=== PATIENT | female | born 1965 | race Native Hawaiian/Other Pacific Islander ===

== ENCOUNTER → 2016-12-08 | Outpatient (CLI) | payer BC ==
--- NOTE | 2016-12-09 07:15 | US ---
EXAMINATION TYPE: US pelvic complete DATE OF EXAM: 12/08/2016 4:34 PM COMPARISON: NONE CLINICAL HISTORY: R10.2 Pelvic pain. Heavy cycles, 3 c-sections TECHNIQUE: Transvaginal (TV) and Transabdominal (TA) Date of LMP: 11/30/2016 EXAM MEASUREMENTS: Uterus: 10.6 x 4.9 x 5.2 cm Endometrial Stripe: 0.8 cm Right Ovary: 2.2 x 2.6 x 1.7 cm Left Ovary: 2.8 x 2.7 x 1.6 cm 1. Uterus: Anteverted wnl 2. Endometrium: wnl 3. Right Ovary: wnl 4. Left Ovary: 1.1cm simple cyst seen 5. Bilateral Adnexa: wnl 6. Posterior cul-de-sac: wnl Multiple nabothian cysts are seen in the cervix. Endometrium somewhat poorly defined measuring up to 9 mm which is slightly thickened for proliferative phase of menstrual cycle. Both ovaries are somewha t small in size. IMPRESSION: Slight abnormal thickening of endometrial for proliferative phase of menstrual cycle.
== END | disposition home or self-care (01) ==
LOC: RADUSWWP 15:58
PROVIDERS: ATTEND Family Medicine
DX: R93.8 Abnormal findings on diagnostic imaging of other specified body structures (principal); R10.2 Pelvic and perineal pain
CPT/HCPCS: 76830; 76856

== ENCOUNTER → 2017-01-27 | Outpatient (CLI) | payer BC ==
[2017-01-27 11:17] LABS: Basophils % (A) 1 %; CH 23.6; Eosinophils # (A) 0.1 k/uL (0-0.7); Eosinophils % (A) 2 %; HCT 37.4 % (34.0-46.0); HDW 2.81; HGB 11.5 gm/dL (11.4-16.0); Hypochromasia Marked; Luc # (Auto) 0.17; Luc % (Auto) 3; Lymphocytes # (A) 1.5 k/uL (1.0-4.8); Lymphocytes % (A) 31 %; MCH 24.2 pg (25.0-35.0); MCHC 30.7 g/dL (31.0-37.0); MCV 78.8 fL (80.0-100.0); Mean Platelet Volume 7.6; Monocytes # (A) 0.4 k/uL (0-1.0); Monocytes % (A) 9 %; Neutrophils # (A) 2.7 k/uL (1.3-7.7); Neutrophils % (A) 55 %; RBC 4.75 m/uL (3.80-5.40); RDW 15.9 % (11.5-15.5); WBC 4.9 k/uL (3.8-10.6); WBC (Perox) 5.06
== END | disposition home or self-care (01) ==
LOC: LABPAT 10:38
PROVIDERS: ATTEND Obstetrics & Gynecology
DX: Z01.810 Encounter for preprocedural cardiovascular examination (principal); I10 Essential (primary) hypertension; M48.02 Spinal stenosis, cervical region; N93.8 Other specified abnormal uterine and vaginal bleeding; Z01.812 Encounter for preprocedural laboratory examination
CPT/HCPCS: 85025; 93005

== ENCOUNTER 2017-01-30 09:49 | Day surgery (SDC) | payer BC ==
[2017-01-27 09:02] VITALS: BMI 36.9
[~2017-01-30 09:49] MED LIST: DEXAMETHASONE SOD PHOSPHATE 10 MG/ML 1 ML VIAL IV ONE; HYDROmorphone 1 MG/ML 1 ML SYRINGE IVP PRN; LACTATED RINGERS 1,000 ML IV SCH; ONDANSETRON 4 MG/2 ML VIAL IVP ONE; Pre Op ABX Message 1 EACH MISC MISCELLANE ONE
[2017-01-30 10:22] VITALS: RESP 16
[2017-01-30] MEDS ORDERED: LIDOCAINE 1% 20 ML VIAL (10MG/ML) FOR IV START SQ ONE (10:36)
[2017-01-30] MEDS ORDERED: SUCCINYLCHOLINE CHLORIDE 100 MG/5 ML SYR IV ONE (10:47)
[2017-01-30] MEDS ORDERED: LIDOCAINE 1% INJ 10MG/ML (20 ML MDV) ONE (10:47)
[2017-01-30] MEDS ORDERED: fentaNYL (PF) 50 MCG/ML 2 ML AMP ONE (10:47)
[2017-01-30] MEDS ORDERED: KETOROLAC 30 MG/ML 1 ML VIAL ONE (10:47)
[2017-01-30] MEDS ORDERED: MIDAZOLAM 2 MG/2 ML VIAL ONE (10:47)
[2017-01-30] MEDS ORDERED: PROPOFOL 10 MG/ML 20 ML VIAL IV ONE (10:47)
[2017-01-30] MEDS ORDERED: METOCLOPRAMIDE 5 MG/ML 2 ML VIAL IVP PRN (12:23)
[2017-01-30] MEDS ORDERED: KETOROLAC 30 MG/ML 1 ML VIAL IVP PRN (12:23)
[2017-01-30] MEDS ORDERED: ONDANSETRON 4 MG/2 ML VIAL IVP PRN (12:23)
[2017-01-30] MEDS ORDERED: Acetaminophen-Codeine 300-30mg TAB PO PRN ×2 (12:23)
[2017-01-30] MEDS ORDERED: diphenhydrAMINE 50 MG/ML 1 ML VIAL IVP PRN (12:23)
[2017-01-30] MEDS ORDERED: IBUPROFEN 600 MG TAB PO PRN (12:23)
[2017-01-30] MEDS ORDERED: SIMETHICONE 80 MG CHEWABLE PO PRN (12:23)
[2017-01-30] MEDS ORDERED: LACTATED RINGERS 1,000 ML IV SCH (12:30)
--- NOTE | 2017-01-30 12:33 | P.OP ---
Date of Procedure: 01/30/17 Preoperative Diagnosis: #1. Dysfunctional uterine bleeding #2. Cervical stenosis Postoperative Diagnosis: Same Procedure(s) Performed: #1. Diagnostic hysteroscopy #2. Dilation and curettage #3. NovaSure endometrial ablation Implants: Surgeon: Mike Coleman Estimated Blood Loss (ml): 10 IV fluids (ml): 500 Urine output (ml): 100 Pathology: other (Endometrial curettings) Condition: stable Disposition: PACU Indications for Procedure: Operative Findings: Preoperative pelvic examination demonstrated a 7-8 week sized midplane to slightly anteverted mobile normal shaped uterus with normal adnexa bilaterally. Intraoperatively, the uterus sounded to 11 cm. Cervical stenosis was encountered but was able to be broken down using the uterine sound. The hysteroscopic view of the endometrial cavity demonstrated a significant amount of shaggy tissue throughout which was returned at the time of dilation and curettage. The tubal ostia were seen bilaterally. The degree of tissue returned is suggestive of possible hyperplasia pending final pathology. The typical gritty texture was felt with the sharp curet throughout. The settings for the NovaSure tool were a length of 6.5 cm, a width of 4.8 cm, and a total power 172 W. Following a run time of 69 seconds, the base unit read "procedure complete." The postprocedural result appeared to be excellent. The patient is a poor candidate for vaginal hysterectomy. Description of Procedure: The patient was prepped and draped in usual fashion after general endotracheal anesthesia was administered by the anesthesiologist. A weighted speculum was placed and the anterior lip of the cervix grasped with a single-tooth tenaculum. The uterine sound was then used and initially found significant resistance at the opening of the cervix. This was broken down with gentle pressure at which time uterine cavity was entered without difficulty. Uterus sounded to approximately 11 cm with a cervical length of approximately 3-4 cm. Serial dilation was then carried out to admit the diagnostic hysteroscope which was placed into the endometrial cavity. The findings were as noted above with a significant amount of shaggy tissue throughout, particularly in the lower uterine segment on the posterior wall. The bilateral tubal ostia were seen. Once adequate hysteroscopy had been carried out, the scope was set aside and further dilation carried out to admit a small sharp curette. Thorough circumferential curettage was carried out onto a Telfa in the vagina. A moderate to significant amount of tissue was returned. Once adequate curettage had been performed, the sharp curet was set aside and the NovaSure tool placed within the endometrial cavity and seated well. The settings for the tool were as noted above. It was opened to its maximal length at 6.5+ centimeters. The with was 4.8 cm. The total power was 172 W. The cavity check was attempted and passed without difficulty. The tool was enabled and the run was started. After a run time of 69 seconds, the base unit disengaged and read "procedure complete." The 2 was closed and discarded. The diagnostic scope was replaced with what appeared to be an excellent result. The patient has minimal uterine and cervical descensus and is a poor candidate for a vaginal approach should hysterectomy be necessary. The tenaculum was released and there was minimal ongoing bleeding from the tenaculum sites. The bladder was drained at the end of the case was approximately 100 mL of clear rafa urine. There were no complications. All sponge, instrument, and needle counts were correct. The patient tolerated the procedure well and proceeded to the recovery room in stable condition.
[2017-01-30 12:35] VITALS: TEMP 97
[2017-01-30] MEDS ORDERED: LACTATED RINGERS 1,000 ML IV ONE (13:22)
[2017-01-30] MEDS ORDERED: diphenhydrAMINE 50 MG/ML 1 ML VIAL IVP ONE (14:18)
[2017-01-30 14:26] VITALS: BP 141/91; PULSE 50
== END 2017-01-30 15:35 | disposition home or self-care (01) ==
LOC: OR 09:49
PROVIDERS: ATTEND Obstetrics & Gynecology
DX: N81.4 Uterovaginal prolapse, unspecified (principal); N88.2 Stricture and stenosis of cervix uteri; N93.8 Other specified abnormal uterine and vaginal bleeding; I10 Essential (primary) hypertension; E07.9 Disorder of thyroid, unspecified; K21.9 Gastro-esophageal reflux disease without esophagitis; Z88.2 Allergy status to sulfonamides; Z91.040 Latex allergy status; Z91.048 Other nonmedicinal substance allergy status; Z79.1 Long term (current) use of non-steroidal anti-inflammatories (NSAID); Z79.899 Other long term (current) drug therapy; Z90.49 Acquired absence of other specified parts of digestive tract
CPT/HCPCS: 58563; 81025; 88305; J2250; J1200; J1100; J2405; J2001; J3010; J1885; J0330; J2704

== ENCOUNTER 2017-08-17 06:21 | Emergency (ER) | payer BC ==
[2017-08-17] MEDS ORDERED: MORPHINE SULFATE 5 MG/ML SYRINGE IV STA (06:40)
[2017-08-17] MEDS ORDERED: SODIUM CHLORIDE 0.9% 1,000 ML IV STA ×2 (06:40)
[2017-08-17] MEDS ORDERED: RX INFO: IV CONTRAST WAS GIVEN 1 EACH MISC MISCELLANE PRN (06:40)
--- NOTE | 2017-08-17 06:41 | ED ---
General Adult HPI - General Source: patient, RN notes reviewed, old records reviewed Mode of arrival: ambulatory Limitations: no limitations <Ricky Patel - Last Filed: 08/17/17 06:52> <Ronald Baker - Last Filed: 08/17/17 10:18> - General Chief complaint: Back Pain/Injury Stated complaint: back pain Time Seen by Provider: 08/17/17 06:36 - History of Present Illness Initial comments: This is a 52-year-old female ER for evaluation of back pain. Back pain paralumbar spinal radiating around her anterior pelvis. Patient denies history of similar pain. She did see her doctor later this week for similar pain and was told to go to the ER if symptoms worsened. She did have some vaginal bleeding and she is postmenopausal, patient also admits to history ofspinal disease cervical stenosis, patient states she's had some discolored stools, yellowish, diarrhea, history of colonoscopy showing diverticulosis but no other significant disease, no blood in her stool. She did have some pain with urination although no burning. Patient denies any fevers. She has had appendix removed. And 3 C-sections (Ricky Patel) - Related Data Home Medications Medication Instructions Recorded Confirmed Levothyroxine Sodium [Synthroid] 137 mcg PO DAILY 01/27/17 08/17/17 Meloxicam [Mobic] 15 mg PO DAILY 01/27/17 08/17/17 Ranitidine HCl [Zantac] 150 mg PO BID 01/27/17 08/17/17 Triamterene-Hctz 37.5-25Mg 1 cap PO DAILY 01/27/17 08/17/17 [Dyazide 37.5-25 Capsule] Acetaminophen [Tylenol Arthritis] 650 mg PO Q4HR PRN 08/17/17 08/17/17 Ondansetron [Zofran ODT] 8 mg PO Q12HR PRN 08/17/17 08/17/17 Allergies Allergy/AdvReac Type Severity Reaction Status Date / Time adhesive Allergy Rash/Hives Verified 08/17/17 07:30 latex Allergy Rash/Hives Verified 08/17/17 07:30 Sulfa (Sulfonamide Allergy Anaphylaxis Verified 08/17/17 07:30 Antibiotics) Review of Systems ROS Other: All systems not noted in ROS Statement are negative. <Roskopp,Ricky B - Last Filed: 08/17/17 06:52> ROS Other: All systems not noted in ROS Statement are negative. <Ronald Baker - Last Filed: 08/17/17 10:18> ROS Statement: Those systems with pertinent positive or pertinent negative responses have been documented in the HPI. Past Medical History Past Medical History: Hypertension, Thyroid Disorder Additional Past Medical History / Comment(s): Seasonal allergies, R thumb arthritis, recent tatoo LLE. Hx. of Gestational Diabetes. History of Any Multi-Drug Resistant Organisms: None Reported Past Surgical History: Appendectomy, Section, Orthopedic Surgery Additional Past Surgical History / Comment(s): R knee surgery in the past, Colonoscopy. Past Anesthesia/Blood Transfusion Reactions: Postoperative Nausea & Vomiting ( PONV) Past Psychological History: No Psychological Hx Reported Smoking Status: Never smoker - Past Family History Mother Family Medical History: Cancer, Deep Vein Thrombosis (DVT) Additional Family Medical History / Comment(s): Colon Father Family Medical History: Cancer Additional Family Medical History / Comment(s): Lung <Ricky Patel - Last Filed: 08/17/17 06:52> General Exam Limitations: no limitations General appearance: alert, anxious, obese Head exam: Present: atraumatic, normocephalic, normal inspection Eye exam: Present: normal appearance, PERRL, EOMI. Absent: scleral icterus, conjunctival injection, periorbital swelling ENT exam: Present: normal exam, mucous membranes moist Neck exam: Present: normal inspection. Absent: tenderness, meningismus, lymphadenopathy Respiratory exam: Present: normal lung sounds bilaterally. Absent: respiratory distress, wheezes, rales, rhonchi, stridor Cardiovascular Exam: Present: regular rate, normal rhythm, normal heart sounds. Absent: systolic murmur, diastolic murmur, rubs, gallop, clicks GI/Abdominal exam: Present: soft, distended, tenderness (generalized), normal bowel sounds. Absent: guarding, rebound, rigid Extremities exam: Present: normal inspection, full ROM, normal capillary refill. Absent: tenderness, pedal edema, joint swelling, calf tenderness Back exam: Present: normal inspection Neurological exam: Present: alert, oriented X3, CN II-XII intact Psychiatric exam: Present: normal affect, normal mood Skin exam: Present: warm, dry, intact, normal color. Absent: rash <Ricky Patel - Last Filed: 08/17/17 06:52> Vital Signs 08/17/17 08/17/17 06:24 08:27 Temperature 98.7 F Pulse Rate 123 H 74 Respiratory 20 18 Rate Blood Pressure 146/90 134/72 O2 Sat by Pulse 98 96 Oximetry Medical Decision Making <Ricky Patel - Last Filed: 08/17/17 06:52> - Lab Data Result diagrams: 08/17/17 07:00 08/17/17 07:00 <Ronald Baker - Last Filed: 08/17/17 10:18> - Medical Decision Making 52-year-old female presenting with abdominal pain, diarrhea, and low back pain. Patient was signed out awaiting laboratory studies and computed tomography scan. Laboratory studies reveal normal white blood cell count, stable hemoglobin, normal electrolytes urinalysis unremarkable. CT was obtained, shows right ovarian cyst versus neoplasm, L2 through S1 disc bulging with no stenosis, and hepatic steatosis. This information is informed to the patient, she is concerned about the ovarian cyst, ultrasound is obtained for better characterization. This shows a right ovarian cyst 2.5 x 2.6 x 3.3 cm. This will require 6 week follow-up. Given the vaginal bleeding and ovarian cyst in this age group, she will follow-up with her [employer] and primary care physician. ( Ronald Baker) - Lab Data Lab Results 08/17/17 08/17/17 08/17/17 Range/Units 07:00 07:00 07:00 WBC 6.0 (3.8-10.6) k/uL RBC 5.25 (3.80-5.40) m/uL Hgb 14.3 (11.4-16.0) gm/dL Hct 44.0 (34.0-46.0) % MCV 83.8 (80.0-100.0) fL MCH 27.2 (25.0-35.0) pg MCHC 32.5 (31.0-37.0) g/dL RDW 16.8 H (11.5-15.5) % Plt Count 274 (150-450) k/uL Neutrophils % 61 % Lymphocytes % 26 % Monocytes % 8 % Eosinophils % 2 % Basophils % 1 % Neutrophils # 3.7 (1.3-7.7) k/uL Lymphocytes # 1.5 (1.0-4.8) k/uL Monocytes # 0.5 (0-1.0) k/uL Eosinophils # 0.1 (0-0.7) k/uL Basophils # 0.1 (0-0.2) k/uL Anisocytosis Slight Sodium 139 (137-145) mmol/L Potassium 4.0 (3.5-5.1) mmol/L Chloride 100 (98-107) mmol/L Carbon Dioxide 26 (22-30) mmol/L Anion Gap 13 mmol/L BUN 12 (7-17) mg/dL Creatinine 1.00 (0.52-1.04) mg/dL Est GFR (MDRD) Af Amer >60 (>60 ml/min/1.73 sqM) Est GFR (MDRD) Non-Af 59 (>60 ml/min/1.73 sqM) Glucose 136 H (74-99) mg/dL Calcium 9.8 (8.4-10.2) mg/dL Total Bilirubin 0.7 (0.2-1.3) mg/dL AST 27 (14-36) U/L ALT 35 (9-52) U/L Alkaline Phosphatase 71 (38-126) U/L Total Creatine Kinase 107 (30-135) U/L CK-MB (CK-2) 0.3 (0.0-2.4) ng/mL CK-MB (CK-2) Rel Index 0.3 Troponin I <0.012 (0.000-0.034) ng/mL Total Protein 7.6 (6.3-8.2) g/dL Albumin 4.5 (3.5-5.0) g/dL Amylase 39 (30-110) U/L Lipase 69 (23-300) U/L Urine Color Urine Appearance (Clear) Urine pH (5.0-8.0) Ur Specific [place] (1.001-1.035) Urine Protein (Negative) Urine Glucose (UA) (Negative) Urine Ketones (Negative) Urine Blood (Negative) Urine Nitrite (Negative) Urine Bilirubin (Negative) Urine Urobilinogen (<2.0) mg/dL Ur Leukocyte Esterase (Negative) Urine RBC (0-5) /hpf Urine WBC (0-5) /hpf Ur Squamous Epith Cells (0-4) /hpf Urine Bacteria (None) /hpf Urine Mucus (None) /hpf 08/17/17 Range/Units 07:00 WBC (3.8-10.6) k/uL RBC (3.80-5.40) m/uL Hgb (11.4-16.0) gm/dL Hct (34.0-46.0) % MCV (80.0-100.0) fL MCH (25.0-35.0) pg MCHC (31.0-37.0) g/dL RDW (11.5-15.5) % Plt Count (150-450) k/uL Neutrophils % % Lymphocytes % % Monocytes % % Eosinophils % % Basophils % % Neutrophils # (1.3-7.7) k/uL Lymphocytes # (1.0-4.8) k/uL Monocytes # (0-1.0) k/uL Eosinophils # (0-0.7) k/uL Basophils # (0-0.2) k/uL Anisocytosis Sodium (137-145) mmol/L Potassium (3.5-5.1) mmol/L Chloride (98-107) mmol/L Carbon Dioxide (22-30) mmol/L Anion Gap mmol/L BUN (7-17) mg/dL Creatinine (0.52-1.04) mg/dL Est GFR (MDRD) Af Amer (>60 ml/min/1.73 sqM) Est GFR (MDRD) Non-Af (>60 ml/min/1.73 sqM) Glucose (74-99) mg/dL Calcium (8.4-10.2) mg/dL Total Bilirubin (0.2-1.3) mg/dL AST (14-36) U/L ALT (9-52) U/L Alkaline Phosphatase (38-126) U/L Total Creatine Kinase (30-135) U/L CK-MB (CK-2) (0.0-2.4) ng/mL CK-MB (CK-2) Rel Index Troponin I (0.000-0.034) ng/mL Total Protein (6.3-8.2) g/dL Albumin (3.5-5.0) g/dL Amylase (30-110) U/L Lipase (23-300) U/L Urine Color Yellow Urine Appearance Cloudy H (Clear) Urine pH 5.5 (5.0-8.0) Ur Specific [place] 1.023 (1.001-1.035) Urine Protein Trace H (Negative) Urine Glucose (UA) Negative (Negative) Urine Ketones Negative (Negative) Urine Blood Moderate H (Negative) Urine Nitrite Negative (Negative) Urine Bilirubin Negative (Negative) Urine Urobilinogen 2.0 (<2.0) mg/dL Ur Leukocyte Esterase Negative (Negative) Urine RBC 1 (0-5) /hpf Urine WBC 3 (0-5) /hpf Ur Squamous Epith Cells 12 H (0-4) /hpf Urine Bacteria Rare H (None) /hpf Urine Mucus Few H (None) /hpf Disposition <Ricky Patel - Last Filed: 08/17/17 06:52> Time of Disposition: 10:17 <Ronald Baker - Last Filed: 08/17/17 10:18> Clinical Impression: Ovarian cyst, Diarrhea Disposition: HOME SELF-CARE Condition: Good Instructions: Acute Diarrhea (ED), Acute Abdominal Pain (ED), Ovarian Cyst (ED) Referrals: Otf Okeefe MD [Primary Care Provider] - 1-2 days Mike Coleman MD [STAFF PHYSICIAN] - 1-2 days
[2017-08-17 07:19] LABS: Anisocytosis Slight; Basophils # (A) 0.1 k/uL (0-0.2); Basophils % (A) 1 %; Eosinophils # (A) 0.1 k/uL (0-0.7); Eosinophils % (A) 2 %; HGB 14.3 gm/dL (11.4-16.0); Lymphocytes # (A) 1.5 k/uL (1.0-4.8); Lymphocytes % (A) 26 %; MCH 27.2 pg (25.0-35.0); MCHC 32.5 g/dL (31.0-37.0); MCV 83.8 fL (80.0-100.0); Mean Platelet Volume 7.7; Monocytes # (A) 0.5 k/uL (0-1.0); Monocytes % (A) 8 %; Neutrophils # (A) 3.7 k/uL (1.3-7.7); Neutrophils % (A) 61 %; Platelet Count 274 k/uL (150-450); RBC 5.25 m/uL (3.80-5.40); RDW 16.8 % (11.5-15.5)
[2017-08-17 07:23] LABS: Appearance,Urine Cloudy (Clear); Bacteria,Urine Rare /hpf; Bilirubin,Urine Negative (Negative); Blood,Urine Moderate (Negative); Color,Urine Yellow; Glucose,Urine (UA) Negative (Negative); Ketones,Urine Negative (Negative); Leukocyte Esterase,Urine Negative (Negative); Mucus,Urine Few /hpf; Nitrite,Urine Negative (Negative); PH, Urine 5.5 (5.0-8.0); Protein,Urine Trace (Negative); RBC,Urine 1 /hpf (0-5); Specific Gravity,Urine 1.023 (1.001-1.035); Squamous Epithelial Cell,Urine 12 /hpf (0-4); WBC,Urine 3 /hpf (0-5)
[2017-08-17 07:31] LABS: ALT 35 U/L (9-52); AST 27 U/L (14-36); Albumin 4.5 g/dL (3.5-5.0); Alkaline Phosphatase 71 U/L (38-126); Amylase 39 U/L (30-110); Anion Gap 13 mmol/L; Blood Urea Nitrogen 12 mg/dL (7-17); Calcium 9.8 mg/dL (8.4-10.2); Carbon Dioxide 26 mmol/L (22-30); Chloride 100 mmol/L (98-107); Glucose 136 mg/dL (74-99); Lipase 69 U/L (23-300); Sodium 139 mmol/L (137-145); Total Bilirubin 0.7 mg/dL (0.2-1.3); Total Protein 7.6 g/dL (6.3-8.2)
[2017-08-17 07:43] LABS: Creatine Kinase 107 U/L (30-135)
[2017-08-17 07:57] LABS: Creatine Kinase MB 0.3 ng/mL (0.0-2.4); Troponin I <0.012 ng/mL (0.000-0.034)
--- NOTE | 2017-08-17 08:24 | CT ---
EXAMINATION TYPE: CT abdomen pelvis w con DATE OF EXAM: 08/17/2017 HISTORY: Patient complains of low back pain and nausea. CT DLP: 1889mGycm Automated Exposure Control for Dose Reduction was Utilized. CONTRAST: CT scan of the abdomen and pelvis is performed with IV Contrast, patient injected with 100 mL of Omni paque 300. COMPARISON: Pelvic ultrasound dated 12/08/2016 FINDINGS: LUNG BASES: Minimal bibasilar subsegmental atelectasis. LIVER/GB: Hepatic parenchyma is diffusely hypoattenuated in comparison to that of the spleen, most co mmonly seen in hepatic steatosis. This finding limits evaluation for hepatic masses. No gross evidenc e of hepatic mass is seen. No intrahepatic biliary ductal dilatation. No cholelithiasis. PANCREAS: No significant abnormality is seen. SPLEEN: Few punctate granulomas are noted within the splenic parenchyma compatible with prior 9 granu lomatous changes. No splenomegaly. ADRENALS: No significant abnormality is seen. KIDNEYS: No significant abnormality is seen. No hydronephrosis. BOWEL: Scattered sigmoid diverticula are present without pericolonic fat stranding to suggest diverti culitis. The appendix is not clearly defined although no right lower quadrant fat stranding changes a re seen terminal ileum is unremarkable. Bowel is nondilated without evidence of obstruction. UTERUS/ADNEXA: There is a fluid attenuated simple appearing right adnexal lesion on CT measuring 3.9 x 3.2 cm. This was not present on the prior pelvic ultrasound of 12/08/2016. Left adnexa and uterus ar e grossly unremarkable. LYMPH NODES: No greater than 1cm abdominal or pelvic lymph nodes are appreciated. OSSEOUS STRUCTURES: Nonspecific punctate sclerotic foci are seen within the femoral heads and right p davide. These may represent bone islands. No evidence of fracture or malalignment. Small broad-based d isc bulges are seen at L2-S1 without spinal canal stenosis. OTHER: Small fat filled hiatal hernia superimposed upon diastases recti. IMPRESSION: 1. Fluid attenuated right adnexal lesion. This could represent a simple cyst or cystic ovarian neopla sm. Ultrasound should be performed on a nonemergent basis for further characterization. If this relat es to a simple cyst in a postmenopausal female, consensus guidelines suggest annual surveillance pelv ic ultrasound. 2. Multilevel degenerative changes with broad-based disc bulges at L2-S1. No evidence of spinal canal stenosis. 3. Hepatic steatosis. 4. No acute intra-abdominal process to correlate to the patient's symptoms. No evidence of bowel obst ruction or ileus.
--- NOTE | 2017-08-17 10:02 | US ---
EXAMINATION TYPE: US pelvis complete transvag DATE OF EXAM: 08/17/2017 COMPARISON: NONE CLINICAL HISTORY: Pain. TECHNIQUE: Transvaginal (TV) and Transabdominal (TA) Date of LMP: 08/11/17 EXAM MEASUREMENTS: Uterus: 9.8 x 6.4 x 5.7 cm Endometrial Stripe: 0.6 cm Right Ovary: not positively identified Left Ovary: not positively identified Patient morbidly obese 1. Uterus: Anteverted, multiple nabothians noted in cervix, may be heterogeneous, limited visualizat ion. 2. Endometrium: difficult to visualize, appears wnl 3. Right Ovary: 3.5 x 2.6 x 3.3 cm cystic structure seen in right adnexa, unable to identify any surr ounding ovarian tissue 4. Left Ovary: not visualized 5. Bilateral Adnexa: wnl 6. Posterior cul-de-sac: wnl IMPRESSION: 1. Right adnexal cyst. Follow-up in 6 weeks is recommended.
[2017-08-17 16:27] VITALS: BP 124/69; PULSE 78; RESP 18; TEMP 98.5
== END 2017-08-17 10:30 | disposition home or self-care (01) ==
LOC: EC 06:21
DX: N83.201 Unspecified ovarian cyst, right side (principal); R19.7 Diarrhea, unspecified; M51.27 Other intervertebral disc displacement, lumbosacral region; I10 Essential (primary) hypertension; R30.0 Dysuria; M19.041 Primary osteoarthritis, right hand; E07.9 Disorder of thyroid, unspecified; E66.9 Obesity, unspecified; Z79.1 Long term (current) use of non-steroidal anti-inflammatories (NSAID); Z79.899 Other long term (current) drug therapy; Z88.2 Allergy status to sulfonamides; Z91.040 Latex allergy status; Z91.09 Other allergy status, other than to drugs and biological substances; Z90.49 Acquired absence of other specified parts of digestive tract; Z68.38 Body mass index [BMI] 38.0-38.9, adult; Z80.0 Family history of malignant neoplasm of digestive organs
CPT/HCPCS: 36415; 80053; 82150; 82550; 82553; 83690; 84484; 85025; 81001; 87086; 76856; 76830; 74177; 99284; 96374; 96361 ×3; Q9967; J2274

== ENCOUNTER → 2019-01-23 | Outpatient (CLI) | payer BC ==
--- NOTE | 2019-01-24 09:53 | MM ---
Reason for exam: screening (asymptomatic). Physical Findings: A clinical breast exam by your physician is recommended on an annual basis and results should be correlated with mammographic findings. MG Screening Mammo w CAD Bilateral CC and MLO view(s) were taken. No prior studies available for comparison. The breast tissue is heterogeneously dense. This may lower the sensitivity of mammography. Benign appearing bilateral calcifications. ASSESSMENT: Benign, BI-RAD 2 RECOMMENDATION: Routine screening mammogram of both breasts in 1 year.
== END | disposition home or self-care (01) ==
LOC: RADMAMWWP 15:40
PROVIDERS: ATTEND Family Medicine
DX: Z12.31 Encounter for screening mammogram for malignant neoplasm of breast (principal)
CPT/HCPCS: 77067

== ENCOUNTER 2019-08-04 12:37 | Emergency (ER) | payer BC ==
[2019-08-04 13:11] VITALS: PULSE 62
[2019-08-04] MEDS ORDERED: SODIUM CHLORIDE 0.9% 1,000 ML IV STA (13:24)
[2019-08-04 13:51] LABS: Amorphous Sediment,Urine Moderate /hpf; Appearance,Urine Turbid (Clear); Bilirubin,Urine Negative (Negative); Blood,Urine Small (Negative); Color,Urine Yellow; Glucose,Urine (UA) Negative (Negative); Ketones,Urine Negative (Negative); Leukocyte Esterase,Urine Large (Negative); Mucus,Urine Rare /hpf; Nitrite,Urine Negative (Negative); Protein,Urine Trace (Negative); Specific Gravity,Urine 1.021 (1.001-1.035); Squamous Epithelial Cell,Urine 5 /hpf (0-4); Urobilinogen,Urine <2.0 mg/dL (<2.0); WBC,Urine 33 /hpf (0-5)
[2019-08-04 13:54] LABS: Basophils # (A) 0.1 k/uL (0-0.2); Basophils % (A) 1 %; Eosinophils # (A) 0.4 k/uL (0-0.7); Eosinophils % (A) 7 %; HGB 14.3 gm/dL (11.4-16.0); Lymphocytes # (A) 2.1 k/uL (1.0-4.8); Lymphocytes % (A) 34 %; MCH 29.4 pg (25.0-35.0); MCHC 33.3 g/dL (31.0-37.0); MCV 88.4 fL (80.0-100.0); Mean Platelet Volume 7.4; Monocytes # (A) 0.4 k/uL (0-1.0); Monocytes % (A) 6 %; Neutrophils # (A) 3.2 k/uL (1.3-7.7); Neutrophils % (A) 50 %; Platelet Count 314 k/uL (150-450); RBC 4.86 m/uL (3.80-5.40); RDW 12.9 % (11.5-15.5); WBC 6.3 k/uL (3.8-10.6)
[2019-08-04 13:55] LABS: ALT 27 U/L (4-34); AST 33 U/L (14-36); African American GFR (CKD) >90 (>60 ml/min/1.73 sqM); Albumin 4.1 g/dL (3.5-5.0); Alkaline Phosphatase 69 U/L (38-126); Amylase 40 U/L (30-110); Anion Gap 6 mmol/L; Blood Urea Nitrogen 20 mg/dL (7-17); Calcium 9.2 mg/dL (8.4-10.2); Carbon Dioxide 27 mmol/L (22-30); Chloride 105 mmol/L (98-107); Glucose 98 mg/dL (74-99); Non-African American GFR(CKD) 83 (>60 ml/min/1.73 sqM); Potassium 4.1 mmol/L (3.5-5.1); Sodium 138 mmol/L (137-145); Total Bilirubin 0.5 mg/dL (0.2-1.3); Total Protein 6.9 g/dL (6.3-8.2)
[2019-08-04 13:58] LABS: INR 0.9 (<1.2); Partial Thromboplastin Time 23.7 sec (22.0-30.0); Prothrombin Time 9.7 sec (9.0-12.0)
--- NOTE | 2019-08-04 14:43 | ED ---
GI Bleed HPI - General Chief complaint: GI Bleed Stated complaint: Blood in stool Time Seen by Provider: 08/04/19 13:13 Source: patient, RN notes reviewed Mode of arrival: ambulatory Limitations: no limitations - History of Present Illness Initial comments: 54-year-old female presents emergency Department with chief complaint of rectal bleeding. Patient states she started having some bowel movements morning states that there is a red blood mixed in her stool and around. Patient states she's having left-sided abdominal pain she's had history of diverticulitis in which she had bleeding within the past. Patient reports no fevers or chills minimal nausea no vomiting. Patient has no complaints of urinary frequency or dysuria at this time. - Related Data Home Medications Medication Instructions Recorded Confirmed Levothyroxine Sodium [Synthroid] 137 mcg PO DAILY 01/27/17 11/23/17 Ranitidine HCl [Zantac] 150 mg PO BID 01/27/17 11/23/17 Triamterene-Hctz 37.5-25Mg 1 cap PO DAILY 01/27/17 11/23/17 [Dyazide 37.5-25 Capsule] Acetaminophen [Tylenol Arthritis] 650 mg PO Q4HR PRN 08/17/17 11/23/17 Previous Rx's Medication Instructions Recorded Meclizine [Antivert] 25 mg PO TID #20 tab 11/23/17 methylPREDNISolone Dose Pack 4 mg PO DIRECTED #21 package 11/23/17 [Medrol Dose Pack] Amoxicillin/Potassium Clav 1 tab PO Q12HR #20 tab 08/04/19 [Augmentin 875-125 Tablet] Fluconazole [Diflucan] 150 mg PO ONCE #4 tab 08/04/19 Allergies Allergy/AdvReac Type Severity Reaction Status Date / Time adhesive Allergy Rash/Hives Verified 08/04/19 13:11 latex Allergy Rash/Hives Verified 08/04/19 13:11 Sulfa (Sulfonamide Allergy Anaphylaxis Verified 08/04/19 13:11 Antibiotics) Review of Systems ROS Statement: Those systems with pertinent positive or pertinent negative responses have been documented in the HPI. ROS Other: All systems not noted in ROS Statement are negative. Past Medical History Past Medical History: Hypertension, Thyroid Disorder Additional Past Medical History / Comment(s): Seasonal allergies, R thumb arthritis, History of Any Multi-Drug Resistant Organisms: None Reported Past Surgical History: Appendectomy, Section, Orthopedic Surgery Additional Past Surgical History / Comment(s): R knee surgery in the past, Colonoscopy. Past Anesthesia/Blood Transfusion Reactions: Postoperative Nausea & Vomiting (PONV) Past Psychological History: No Psychological Hx Reported Smoking Status: Never smoker Past Alcohol Use History: None Reported Past Drug Use History: None Reported - Past Family History Mother Family Medical History: Cancer, Deep Vein Thrombosis (DVT) Additional Family Medical History / Comment(s): Colon Father Family Medical History: Cancer Additional Family Medical History / Comment(s): Lung General Exam Limitations: no limitations General appearance: alert, in no apparent distress Head exam: Present: atraumatic, normocephalic, normal inspection Respiratory exam: Present: normal lung sounds bilaterally. Absent: respiratory distress, wheezes, rales, rhonchi, stridor Cardiovascular Exam: Present: regular rate, normal rhythm, normal heart sounds. Absent: systolic murmur, diastolic murmur, rubs, gallop, clicks GI/Abdominal exam: Present: soft, tenderness (Moderate left lower quadrant), normal bowel sounds. Absent: distended, guarding, rebound, rigid Back exam: Absent: CVA tenderness (R), CVA tenderness (L) Neurological exam: Present: alert Skin exam: Present: warm, dry, intact, normal color. Absent: rash Course Vital Signs 08/04/19 13:09 Temperature 97.8 F Pulse Rate 62 Respiratory 18 Rate Blood Pressure 158/90 O2 Sat by Pulse 99 Oximetry Medical Decision Making - Medical Decision Making 54-year-old female presented for rectal bleeding and abdominal pain CT shows evidence of colitis, underlying diverticulosis. Patient's hemoglobin is stable. Patient is evidence of urinary tract infection. Patient offered admission but prefers to go home and agrees to be on antibiotics. Return parameters were discussed. - Lab Data Result diagrams: 08/04/19 13:33 08/04/19 13:33 Lab Results 08/04/19 08/04/19 08/04/19 Range/Units 13:33 13:33 13:33 WBC 6.3 (3.8-10.6) k/uL RBC 4.86 (3.80-5.40) m/uL Hgb 14.3 (11.4-16.0) gm/dL Hct 43.0 (34.0-46.0) % MCV 88.4 (80.0-100.0) fL MCH 29.4 (25.0-35.0) pg MCHC 33.3 (31.0-37.0) g/dL RDW 12.9 (11.5-15.5) % Plt Count 314 (150-450) k/uL Neutrophils % 50 % Lymphocytes % 34 % Monocytes % 6 % Eosinophils % 7 % Basophils % 1 % Neutrophils # 3.2 (1.3-7.7) k/uL Lymphocytes # 2.1 (1.0-4.8) k/uL Monocytes # 0.4 (0-1.0) k/uL Eosinophils # 0.4 (0-0.7) k/uL Basophils # 0.1 (0-0.2) k/uL PT (9.0-12.0) sec INR (<1.2) APTT (22.0-30.0) sec Sodium 138 (137-145) mmol/L Potassium 4.1 (3.5-5.1) mmol/L Chloride 105 (98-107) mmol/L Carbon Dioxide 27 (22-30) mmol/L Anion Gap 6 mmol/L BUN 20 H (7-17) mg/dL Creatinine 0.82 (0.52-1.04) mg/dL Est GFR (CKD-EPI)AfAm >90 (>60 ml/min/1.73 sqM) Est GFR (CKD-EPI)NonAf 83 (>60 ml/min/1.73 sqM) Glucose 98 (74-99) mg/dL Plasma Lactic Acid Jacky (0.7-2.0) mmol/L Calcium 9.2 (8.4-10.2) mg/dL Total Bilirubin 0.5 (0.2-1.3) mg/dL AST 33 (14-36) U/L ALT 27 (4-34) U/L Alkaline Phosphatase 69 (38-126) U/L Total Protein 6.9 (6.3-8.2) g/dL Albumin 4.1 (3.5-5.0) g/dL Amylase 40 (30-110) U/L Lipase 102 (23-300) U/L Urine Color Yellow Urine Appearance Turbid H (Clear) Urine pH 8.0 (5.0-8.0) Ur Specific [place] 1.021 (1.001-1.035) Urine Protein Trace H (Negative) Urine Glucose (UA) Negative (Negative) Urine Ketones Negative (Negative) Urine Blood Small H (Negative) Urine Nitrite Negative (Negative) Urine Bilirubin Negative (Negative) Urine Urobilinogen <2.0 (<2.0) mg/dL Ur Leukocyte Esterase Large H (Negative) Urine WBC 33 H (0-5) /hpf Ur Squamous Epith Cells 5 H (0-4) /hpf Amorphous Sediment Moderate H (None) /hpf Urine Mucus Rare H (None) /hpf 08/04/19 08/04/19 Range/Units 13:33 13:33 WBC (3.8-10.6) k/uL RBC (3.80-5.40) m/uL Hgb (11.4-16.0) gm/dL Hct (34.0-46.0) % MCV (80.0-100.0) fL MCH (25.0-35.0) pg MCHC (31.0-37.0) g/dL RDW (11.5-15.5) % Plt Count (150-450) k/uL Neutrophils % % Lymphocytes % % Monocytes % % Eosinophils % % Basophils % % Neutrophils # (1.3-7.7) k/uL Lymphocytes # (1.0-4.8) k/uL Monocytes # (0-1.0) k/uL Eosinophils # (0-0.7) k/uL Basophils # (0-0.2) k/uL PT 9.7 (9.0-12.0) sec INR 0.9 (<1.2) APTT 23.7 (22.0-30.0) sec Sodium (137-145) mmol/L Potassium (3.5-5.1) mmol/L Chloride (98-107) mmol/L Carbon Dioxide (22-30) mmol/L Anion Gap mmol/L BUN (7-17) mg/dL Creatinine (0.52-1.04) mg/dL Est GFR (CKD-EPI)AfAm (>60 ml/min/1.73 sqM) Est GFR (CKD-EPI)NonAf (>60 ml/min/1.73 sqM) Glucose (74-99) mg/dL Plasma Lactic Acid Jacky 0.9 (0.7-2.0) mmol/L Calcium (8.4-10.2) mg/dL Total Bilirubin (0.2-1.3) mg/dL AST (14-36) U/L ALT (4-34) U/L Alkaline Phosphatase (38-126) U/L Total Protein (6.3-8.2) g/dL Albumin (3.5-5.0) g/dL Amylase (30-110) U/L Lipase (23-300) U/L Urine Color Urine Appearance (Clear) Urine pH (5.0-8.0) Ur Specific [place] (1.001-1.035) Urine Protein (Negative) Urine Glucose (UA) (Negative) Urine Ketones (Negative) Urine Blood (Negative) Urine Nitrite (Negative) Urine Bilirubin (Negative) Urine Urobilinogen (<2.0) mg/dL Ur Leukocyte Esterase (Negative) Urine WBC (0-5) /hpf Ur Squamous Epith Cells (0-4) /hpf Amorphous Sediment (None) /hpf Urine Mucus (None) /hpf Disposition Clinical Impression: Urinary tract infection, Colitis Disposition: HOME SELF-CARE Condition: Stable Instructions (If sedation given, give patient instructions): Colitis (ED) Additional Instructions: Please return to the Emergency Department if symptoms worsen or any other concerns. Prescriptions: Amoxicillin/Potassium Clav [Augmentin 875-125 Tablet] 1 tab PO Q12HR #20 tab Fluconazole [Diflucan] 150 mg PO ONCE #4 tab Is patient prescribed a controlled substance at d/c from ED?: No Referrals: Otf Okeefe MD [Primary Care Provider] - 1-2 days Terrie Cronin MD [STAFF PHYSICIAN] - 1-2 days Time of Disposition: 15:23
--- NOTE | 2019-08-04 15:03 | CT ---
EXAMINATION TYPE: CT abdomen pelvis w con DATE OF EXAM: 08/04/2019 HISTORY: Rectal bleeding. CT DLP: 1884.4mGycm Automated Exposure Control for Dose Reduction was Utilized. CONTRAST: CT scan of the abdomen and pelvis is performed without oral but with IV Contrast, patient injected wi th 100 mL of Isovue 300. COMPARISON: CT abdomen and pelvis August 17, 2017 FINDINGS: LUNG BASES: 5 mm calcified nodular granuloma posterior left lower lobe axial image 1. LIVER/GB: Liver is low dense consistent with diffuse fatty infiltration. PANCREAS: No significant abnormality is seen. SPLEEN: No significant abnormality is seen. ADRENALS: No significant abnormality is seen. KIDNEYS: Symmetric cortical medullary uptake and excretion without hydronephrosis seen bilaterally. BOWEL: Evaluation bowel suboptimal secondary to lack of enteric contrast. Stomach poorly distended an d thus suboptimally evaluated. No suspicious small or large bowel dilatation. Appendix not seen and p resumed surgically absent. Mild wall thickening sigmoid colon and rectum. Occasional scattered divert icula in the left and sigmoid colon. No CT evidence for acute diverticulitis. UTERUS/ADNEXA: Anteverted uterus. Some fluid suspected in the endometrial canal at level of cervix. L eft greater than right pelvic phleboliths. Persistent cystic lesion left ovary measuring up to 2.9 cm current study axial image 76 larger versus prior. Smaller cystic lesion right ovary diminished in si ze from prior but more dense measuring 1.8 cm. All above findings can be better evaluated and charact erized with pelvic ultrasound which is advised if patient is postmenopausal. LYMPH NODES: No greater than 1cm abdominal or pelvic lymph nodes are appreciated. OSSEOUS STRUCTURES: No significant abnormality is seen. OTHER: No significant additional abnormality is seen. IMPRESSION: Possible mild distal colitis versus product of poor distention. Correlate clinically.
[2019-08-04 16:06] VITALS: BP 141/92; RESP 17; TEMP 98
== END 2019-08-04 15:57 | disposition home or self-care (01) ==
LOC: EC 12:37
DX: K52.9 Noninfective gastroenteritis and colitis, unspecified (principal); N39.0 Urinary tract infection, site not specified; K57.30 Diverticulosis of large intestine without perforation or abscess without bleeding; I10 Essential (primary) hypertension; E07.9 Disorder of thyroid, unspecified; M18.11 Unilateral primary osteoarthritis of first carpometacarpal joint, right hand; Z88.2 Allergy status to sulfonamides; Z91.040 Latex allergy status; Z91.048 Other nonmedicinal substance allergy status; Z79.890 Hormone replacement therapy; Z79.891 Long term (current) use of opiate analgesic; Z79.899 Other long term (current) drug therapy; Z90.49 Acquired absence of other specified parts of digestive tract; Z80.0 Family history of malignant neoplasm of digestive organs
CPT/HCPCS: 36415; 80053; 82150; 83605; 83690; 85025; 85610; 85730; 81001; 87086; 74177; 99285; 96360; Q9967

== ENCOUNTER → 2020-06-11 | Outpatient (CLI) | payer BC | END | disposition home or self-care (01) | LOC: LABWHC1 15:38 | PROVIDERS: ATTEND Family Medicine | DX: Z20.828 Contact with and (suspected) exposure to other viral communicable diseases (principal) | CPT/HCPCS: U0003; C9803 ==

== ENCOUNTER 2020-07-22 10:49 | Emergency (ER) | payer BC, OTHER ==
[2020-07-22 11:26] VITALS: BP 127/87; PULSE 57; RESP 18; TEMP 98.4
[2020-07-22] MEDS ORDERED: HYDROcodone/APAP 5-325MG 1 EACH TAB PO STA (11:56)
[2020-07-22] MEDS ORDERED: ORPHENADRINE 30 MG/ML 2 ML VIAL IM STA (11:56)
--- NOTE | 2020-07-22 12:29 | XR ---
EXAMINATION TYPE: XR chest 1V DATE OF EXAM: 07/22/2020 COMPARISON: NONE HISTORY: Posterior left rib pain TECHNIQUE: Single frontal view of the chest is obtained. FINDINGS: There is no focal air space opacity, pleural effusion, or pneumothorax seen. The cardiac silhouette size is within normal limits. The osseous structures are intact. IMPRESSION: No acute process.
--- NOTE | 2020-07-22 12:31 | ED ---
Back Pain HPI - General Chief Complaint: Back Pain/Injury Stated Complaint: [facility] Back Injury Time Seen by Provider: 07/22/20 11:34 Source: patient, RN notes reviewed Mode of arrival: ambulatory Limitations: physical limitation - History of Present Illness Initial Comments: This is a 55-year-old female presents emergency Department chief complaint of upper back pain. Patient states that she was starting her morning class states that she twisted and felt instant pain on the left side of her back. She states it's below her shoulder blade. She has no anterior chest pain no shortness of breath states it hurts with any sort of movement including deep inspiration. No headache no dizziness no upper extremity weakness or lower shunted symptoms. She has no abdominal pain. - Related Data Home Medications Medication Instructions Recorded Confirmed Levothyroxine Sodium [Synthroid] 137 mcg PO DAILY 01/27/17 11/23/17 Ranitidine HCl [Zantac] 150 mg PO BID 01/27/17 11/23/17 Triamterene-Hctz 37.5-25Mg 1 cap PO DAILY 01/27/17 11/23/17 [Dyazide 37.5-25 Capsule] Acetaminophen [Tylenol Arthritis] 650 mg PO Q4HR PRN 08/17/17 11/23/17 Previous Rx's Medication Instructions Recorded Meclizine [Antivert] 25 mg PO TID #20 tab 11/23/17 methylPREDNISolone Dose Pack 4 mg PO DIRECTED #21 package 11/23/17 [Medrol Dose Pack] Amoxicillin/Potassium Clav 1 tab PO Q12HR #20 tab 08/04/19 [Augmentin 875-125 Tablet] Fluconazole [Diflucan] 150 mg PO ONCE #4 tab 08/04/19 Ibuprofen [Motrin] 600 mg PO Q8HR PRN #20 tab 07/22/20 Orphenadrine [Norflex] 100 mg PO Q12H #14 tablet.er 07/22/20 predniSONE 50 mg PO DAILY #5 tab 07/22/20 Allergies Allergy/AdvReac Type Severity Reaction Status Date / Time adhesive Allergy Rash/Hives Verified 07/22/20 11:26 latex Allergy Rash/Hives Verified 07/22/20 11:26 Sulfa (Sulfonamide Allergy Anaphylaxis Verified 07/22/20 11:26 Antibiotics) Review of Systems ROS Statement: Those systems with pertinent positive or pertinent negative responses have been documented in the HPI. ROS Other: All systems not noted in ROS Statement are negative. Past Medical History Past Medical History: Hypertension, Thyroid Disorder Additional Past Medical History / Comment(s): Seasonal allergies, R thumb arthritis, History of Any Multi-Drug Resistant Organisms: None Reported Past Surgical History: Appendectomy, Section, Orthopedic Surgery Additional Past Surgical History / Comment(s): R knee surgery in the past, Colonoscopy. Past Anesthesia/Blood Transfusion Reactions: Postoperative Nausea & Vomiting (PONV) Past Psychological History: No Psychological Hx Reported Smoking Status: Never smoker Past Alcohol Use History: None Reported Past Drug Use History: None Reported - Past Family History Mother Family Medical History: Cancer, Deep Vein Thrombosis (DVT) Additional Family Medical History / Comment(s): Colon Father Family Medical History: Cancer Additional Family Medical History / Comment(s): Lung General Exam Limitations: physical limitation General appearance: alert, in no apparent distress Head exam: Present: atraumatic, normocephalic, normal inspection Eye exam: Present: normal appearance, PERRL, EOMI. Absent: scleral icterus, conjunctival injection, periorbital swelling ENT exam: Present: normal exam, normal oropharynx, mucous membranes moist Neck exam: Present: normal inspection, full ROM. Absent: tenderness, meningismus, lymphadenopathy Respiratory exam: Present: normal lung sounds bilaterally. Absent: respiratory distress, wheezes, rales, rhonchi, stridor, chest wall tenderness Cardiovascular Exam: Present: regular rate, normal rhythm, normal heart sounds. Absent: systolic murmur, diastolic murmur, rubs, gallop, clicks GI/Abdominal exam: Present: soft, normal bowel sounds. Absent: distended, tenderness, guarding, rebound, rigid Back exam: Present: tenderness (Tenderness of the thoracic paraspinal inferior to the scapula), muscle spasm, paraspinal tenderness, other. Absent: full ROM (Decreased range of motion secondary to pain), vertebral tenderness Neurological exam: Present: alert, oriented X3, reflexes normal. Absent: motor sensory deficit Course Vital Signs 07/22/20 11:24 Temperature 98.4 F Pulse Rate 57 L Respiratory 18 Rate Blood Pressure 127/87 O2 Sat by Pulse 99 Oximetry Medical Decision Making - Medical Decision Making X-ray does not show any acute abnormality. Patient's symptoms are improved after medications. Patient feels comfortable with discharge and close follow-up return parameters were discussed. Disposition Clinical Impression: Strain of thoracic region Disposition: HOME SELF-CARE Condition: Stable Instructions (If sedation given, give patient instructions): Thoracic Back Strain (ED) Additional Instructions: Please return to the Emergency Department if symptoms worsen or any other con cerns. Prescriptions: Ibuprofen [Motrin] 600 mg PO Q8HR PRN #20 tab PRN Reason: Pain Orphenadrine [Norflex] 100 mg PO Q12H #14 tablet.er predniSONE 50 mg PO DAILY #5 tab Is patient prescribed a controlled substance at d/c from ED?: No Referrals: Tyson Biggs DO [Primary Care Provider] - 1-2 days Time of Disposition: 13:01
--- NOTE | 2020-07-22 12:31 | XR ---
Lasix spine HISTORY: Pain 3 views of the thoracic spine There is multilevel spondylosis. Thoracic vertebral bodies show preserved height, alignment, and bone mineralization. Mild loss of disc height at intervertebral levels the midthoracic spine. No fracture or subluxation. Widening of the mediastinum is likely technical. IMPRESSION: Degenerative disc disease, thoracic spondylosis.
[2020-07-22] MEDS ORDERED: ACET/COD 300 MG/30 MG STARTER PACK 6 TAB BTL PO STA (13:02)
== END 2020-07-22 13:13 | disposition home or self-care (01) ==
LOC: EC 10:49
DX: S29.012A Strain of muscle and tendon of back wall of thorax, initial encounter (principal); I10 Essential (primary) hypertension; E07.9 Disorder of thyroid, unspecified; Z79.890 Hormone replacement therapy; Z79.899 Other long term (current) drug therapy; Z91.040 Latex allergy status; Z91.048 Other nonmedicinal substance allergy status; Z88.2 Allergy status to sulfonamides; X50.1XXA Overexertion from prolonged static or awkward postures, initial encounter; Y92.69 Other specified industrial and construction area as the place of occurrence of the external cause; Y99.0 Civilian activity done for income or pay
CPT/HCPCS: 72070; 71045; 99283; 96372; J2360

== ENCOUNTER → 2020-10-01 | Outpatient (CLI) | payer BC ==
--- NOTE | 2020-10-01 13:15 | XR ---
EXAMINATION TYPE: XR shoulder complete LT DATE OF EXAM: 10/01/2020 COMPARISON: NONE HISTORY: Pain TECHNIQUE: Three views are submitted. FINDINGS: The osseous structures are intact. There is no acute fracture or dislocation. The AC joint is maint ained. IMPRESSION: 1. No acute process.
== END | disposition home or self-care (01) ==
LOC: RADXRMAIN 12:39
PROVIDERS: ATTEND Family Medicine
DX: M25.512 Pain in left shoulder (principal)

== ENCOUNTER → 2021-01-18 | Outpatient (CLI) | payer OTHER ==
--- NOTE | 2021-01-18 15:30 | XR ---
EXAMINATION TYPE: XR elbow complete RT DATE OF EXAM: 01/18/2021 COMPARISON: NONE HISTORY: Pain FINDINGS: Three views of the elbow demonstrate no pathologic joint effusion. The osseous structures are intact . There is no acute fracture or dislocation. IMPRESSION: 1. No acute fracture or dislocation. If symptoms persist follow-up study in 7 to 10 days could be ob tained.
== END | disposition home or self-care (01) ==
LOC: RADXRMAIN 15:02
PROVIDERS: ATTEND Emergency Medicine
DX: M25.521 Pain in right elbow (principal)

== ENCOUNTER → 2021-01-20 | Outpatient (CLI) | payer OTHER ==
--- NOTE | 2021-01-20 17:06 | XR ---
EXAMINATION TYPE: XR hand complete RT DATE OF EXAM: 01/20/2021 COMPARISON: NONE HISTORY: Pain and swelling TECHNIQUE: 3 views FINDINGS: Metacarpals appear intact. I see no fracture nor dislocation. There are no erosions. There is no subluxation. IP joint spaces are slightly narrowed at the little finger and the thumb. IMPRESSION: No acute abnormality of the right hand. No fracture.
--- NOTE | 2021-01-20 17:07 | XR ---
EXAMINATION TYPE: XR forearm RT DATE OF EXAM: 01/20/2021 COMPARISON: NONE HISTORY: Pain and swelling TECHNIQUE: 2 views FINDINGS: Radius and ulna appear intact. Elbow joint and wrist joint appear intact. I see no fracture nor dislocation. IMPRESSION: Negative right forearm exam. No fracture.
--- NOTE | 2021-01-21 10:13 | XR ---
EXAMINATION TYPE: XR wrist complete RT DATE OF EXAM: 01/20/2021 COMPARISON: NONE HISTORY: Pain TECHNIQUE: Four views submitted. FINDINGS: The osseous structures are intact. The joint spaces are preserved and there is no acute fracture or dislocation. IMPRESSION: 1. No definite acute fracture or dislocation if symptoms persist, follow-up study in 7 to 10 days wo uld be suggested
== END | disposition home or self-care (01) ==
LOC: RADXRMAIN 16:30
PROVIDERS: ATTEND Emergency Medicine
DX: M25.531 Pain in right wrist (principal); M79.641 Pain in right hand; M79.631 Pain in right forearm; M79.89 Other specified soft tissue disorders

== ENCOUNTER → 2021-01-26 | Outpatient (CLI) | payer OTHER ==
--- NOTE | 2021-01-26 09:31 | XR ---
EXAMINATION TYPE: XR elbow complete RT DATE OF EXAM: 01/26/2021 COMPARISON: NONE HISTORY: Pain FINDINGS: Three views of the elbow demonstrate no pathologic joint effusion. The osseous structures are intact . There is no acute fracture or dislocation. IMPRESSION: 1. No acute fracture or dislocation. If symptoms persist follow-up study in 7 to 10 days could be ob tained.
== END | disposition home or self-care (01) ==
LOC: RADXRMAIN 09:07
PROVIDERS: ATTEND Emergency Medicine
DX: M25.521 Pain in right elbow (principal)

== ENCOUNTER → 2021-01-28 | Outpatient (CLI) | payer OTHER ==
--- NOTE | 2021-01-28 12:53 | XR ---
EXAMINATION TYPE: XR hand complete RT DATE OF EXAM: 01/28/2021 COMPARISON: NONE HISTORY: Pain TECHNIQUE: Three views are submitted. FINDINGS: The osseous structures are intact. The joint spaces are preserved and there is no acute fracture or dislocation. IMPRESSION: 1. No definite acute fracture or dislocation if symptoms persist, follow-up study in 7 to 10 days wo uld be suggested
== END | disposition home or self-care (01) ==
LOC: RADXRMAIN 12:23
PROVIDERS: ATTEND Emergency Medicine
DX: M79.641 Pain in right hand (principal)

== ENCOUNTER → 2021-02-08 | Outpatient (CLI) | payer BC ==
--- NOTE | 2021-02-08 09:52 | US ---
EXAMINATION TYPE: US venous doppler duplex UE RT DATE OF EXAM: 02/08/2021 COMPARISON: NONE CLINICAL HISTORY: S50.01XD CONTUSION RT ELBOW. SIDE PERFORMED: right Right Arm: Negative for DVT. IMPRESSION: 1. No evidence of deep venous thrombosis in the right upper extremity veins.
== END | disposition home or self-care (01) ==
LOC: RADUSWWP 09:03
PROVIDERS: ATTEND Emergency Medicine
DX: S50.01XD Contusion of right elbow, subsequent encounter (principal)

== ENCOUNTER → 2021-02-17 | Outpatient (CLI) | payer OTHER ==
--- NOTE | 2021-02-17 12:38 | XR ---
Cervical spine HISTORY: Trauma and pain 6 views of the cervical spine There is multilevel spondylosis, loss of disc height is present at C3-4, C5-6. Retrolisthesis grade 1 C3-4, C4-5 and C5-6 is minimal. Prevertebral soft tissues are normal. There is some foraminal encroa chment on the right at C4, C4-5 and C5-6, C6-7 and on the left at C6-7, C7-T1. Cervical vertebral bod ies show preserved height and bone mineralization. IMPRESSION: Degenerative disc disease, facet arthropathy, no acute fracture or subluxation.
== END | disposition home or self-care (01) ==
LOC: RADXRMAIN 12:06
PROVIDERS: ATTEND Emergency Medicine
DX: S19.9XXA Unspecified injury of neck, initial encounter (principal); M47.812 Spondylosis without myelopathy or radiculopathy, cervical region; M50.30 Other cervical disc degeneration, unspecified cervical region
CPT/HCPCS: 72050

== ENCOUNTER → 2021-04-20 | Outpatient (CLI) | payer BC ==
--- NOTE | 2021-04-21 04:30 | MR ---
EXAMINATION TYPE: MR shoulder LT wo con DATE OF EXAM: 04/20/2021 COMPARISON: None HISTORY: Left shoulder pain and painful when raising over the head for 3 years. Multiplanar multiecho imaging of the left shoulder without contrast. There is small shoulder joint effusion. There is fluid around the biceps tendon. Subscapularis tendon is intact. Glenoid gerry appear intact. The supraspinatus tendon is intact. There is no retraction. I see no bony destructive process. There is no evidence of a fracture. The AC joint shows mild hypert rophic spurring. There is minimal subacromial impingement. IMPRESSION: No evidence of rotator cuff tear. Mild spurring at the AC joint and minimal subacromial impingement. No fracture. Slight increased joint fluid that could relate to some mild synovitis.
== END | disposition home or self-care (01) ==
LOC: RADMRIMAIN 16:34
PROVIDERS: ATTEND Family Medicine
DX: M77.8 Other enthesopathies, not elsewhere classified (principal)

== ENCOUNTER 2021-05-11 20:17 | Emergency (ER) | payer BC ==
[2021-05-11 20:54] VITALS: TEMP 98.8
--- NOTE | 2021-05-11 21:25 | XR ---
EXAMINATION TYPE: XR chest 2V DATE OF EXAM: 05/11/2021 COMPARISON: 07/22/2020 HISTORY: Cough TECHNIQUE: FINDINGS: Heart and mediastinum are normal. Lungs are clear. Diaphragm is normal. Bony thorax appears normal. IMPRESSION: Normal chest. No change.
[2021-05-11] MEDS ORDERED: AZITHROMYCIN 500 MG TAB PO STA (22:17)
[2021-05-11] MEDS ORDERED: predniSONE 50 MG TAB PO STA (22:17)
[2021-05-11] MEDS ORDERED: IBUPROFEN 800 MG TAB PO STA (22:17)
[2021-05-11] MEDS ORDERED: IPRATROPIUM-ALBUTEROL 3 ML NEB INHALATION STA (22:17)
--- NOTE | 2021-05-11 22:20 | ED ---
URI HPI - General Chief Complaint: Upper Respiratory Infection Stated Complaint: Cough, Headache Time Seen by Provider: 05/11/21 21:30 Source: patient Mode of arrival: ambulatory - Related Data Home Medications Medication Instructions Recorded Confirmed Levothyroxine Sodium [Synthroid] 137 mcg PO DAILY 01/27/17 11/23/17 Ranitidine HCl [Zantac] 150 mg PO BID 01/27/17 11/23/17 Triamterene-Hctz 37.5-25Mg 1 cap PO DAILY 01/27/17 11/23/17 [Dyazide 37.5-25 Capsule] Acetaminophen [Tylenol Arthritis] 650 mg PO Q4HR PRN 08/17/17 11/23/17 Previous Rx's Medication Instructions Recorded Meclizine [Antivert] 25 mg PO TID #20 tab 11/23/17 methylPREDNISolone Dose Pack 4 mg PO DIRECTED #21 package 11/23/17 [Medrol Dose Pack] Amoxicillin/Potassium Clav 1 tab PO Q12HR #20 tab 08/04/19 [Augmentin 875-125 Tablet] Fluconazole [Diflucan] 150 mg PO ONCE #4 tab 08/04/19 Ibuprofen [Motrin] 600 mg PO Q8HR PRN #20 tab 07/22/20 Orphenadrine [Norflex] 100 mg PO Q12H #14 tablet.er 07/22/20 predniSONE 50 mg PO DAILY #5 tab 07/22/20 Azithromycin [Zithromax Z-pack (6 0 mg PO DIRECTED #1 packet 05/11/21 tabs)] predniSONE 50 mg PO DAILY #5 tab 05/11/21 Allergies Allergy/AdvReac Type Severity Reaction Status Date / Time adhesive Allergy Rash/Hives Verified 05/11/21 20:46 latex Allergy Rash/Hives Verified 05/11/21 20:46 Sulfa (Sulfonamide Allergy Anaphylaxis Verified 05/11/21 20:46 Antibiotics) Review of Systems ROS Statement: Those systems with pertinent positive or pertinent negative responses have been documented in the HPI. ROS Other: All systems not noted in ROS Statement are negative. Past Medical History Past Medical History: Hypertension, Thyroid Disorder Additional Past Medical History / Comment(s): Seasonal allergies, R thumb arthritis, History of Any Multi-Drug Resistant Organisms: None Reported Past Surgical History: Appendectomy, Section, Orthopedic Surgery Additional Past Surgical History / Comment(s): R knee surgery in the past, Colonoscopy. Past Anesthesia/Blood Transfusion Reactions: Postoperative Nausea & Vomiting (PONV) Past Psychological History: No Psychological Hx Reported Smoking Status: Never smoker Past Alcohol Use History: None Reported Past Drug Use History: None Reported - Past Family History Mother Family Medical History: Cancer, Deep Vein Thrombosis (DVT) Additional Family Medical History / Comment(s): Colon Father Family Medical History: Cancer Additional Family Medical History / Comment(s): Lung Course Vital Signs 05/11/21 05/11/21 20:42 21:42 Temperature 98.8 F Pulse Rate 109 H Respiratory 20 24 Rate Blood Pressure 115/64 O2 Sat by Pulse 96 Oximetry Disposition Clinical Impression: Bronchitis, Acute upper respiratory infection, Upper respiratory tract infection Disposition: HOME SELF-CARE Condition: Good Instructions (If sedation given, give patient instructions): Upper Respiratory Infection (ED), Acute Bronchitis (ED) Prescriptions: predniSONE 50 mg PO DAILY #5 tab Azithromycin [Zithromax Z-pack (6 tabs)] 0 mg PO DIRECTED #1 packet Is patient prescribed a controlled substance at d/c from ED?: No Referrals: Tyson Biggs DO [Primary Care Provider] - 1-2 days
[2021-05-11] MEDS ORDERED: ACET/COD 120MG/12MG LIQ 5ML CUP PO ONE (22:30)
[2021-05-11 22:45] VITALS: PULSE 89
[2021-05-11 23:09] VITALS: BP 120/74; RESP 20
== END 2021-05-11 23:09 | disposition home or self-care (01) ==
LOC: EC 20:17
DX: J40 Bronchitis, not specified as acute or chronic (principal); J06.9 Acute upper respiratory infection, unspecified; I10 Essential (primary) hypertension; M19.041 Primary osteoarthritis, right hand
CPT/HCPCS: 94640; 71046; 99284; J7512

== ENCOUNTER → 2022-07-11 | Outpatient (CLI) | payer BC ==
--- NOTE | 2022-07-12 15:59 | MM ---
Reason for Exam: Screening (asymptomatic). Last mammogram was performed 3 year(s) and 5 month(s) ago. Patient History: Menarche at age 15. First Full-Term at age 22. Mother had breast cancer, left, age 74. Risk Values: Olive 5 year model risk: 2.3%. NCI Lifetime model risk: 15.1%. Prior Study Comparison: 01/23/2019 Bilateral Screening Mammogram, [facility]. Tissue Density: The breast tissue is heterogeneously dense. This may lower the sensitivity of mammography. Findings: Analyzed By CAD. Focal asymmetries in the upper outer aspect right breast. Couple of benign-appearing calcifications are present. No suspicious groups of microcalcifications, spiculated or lobular masses, architectural distortion or other secondary signs of malignancy are mammographically apparent. Overall Assessment: Benign, BI-RAD 2 Management: Screening Mammogram of both breasts in 1 year. A negative mammogram report should not preclude additional follow up of suspicious palpable abnormalities. Patient should continue monthly self breast exam. A clinical breast exam by your physician is recommended on an annual basis and results should be correlated with mammographic findings. Electronically signed and approved by: Scottie El D.O. Radiologis
== END | disposition home or self-care (01) ==
LOC: RADMAMWWP 16:45
PROVIDERS: ATTEND Obstetrics & Gynecology
DX: Z12.31 Encounter for screening mammogram for malignant neoplasm of breast (principal); Z80.3 Family history of malignant neoplasm of breast
CPT/HCPCS: 77063; 77067

== ENCOUNTER → 2023-07-10 | Outpatient (CLI) | payer BC ==
--- NOTE | 2023-07-11 12:19 | CA ---
Transthoracic Echo Report Name: Lavern Hernández Age: 58 Gender: F : 1965 Exam Date: 07/10/2023 17:45 Exam Location: [place] [facility] Ht (in): 68 Wt (lb): 225 Ordering Physician: Tyson Biggs DO Attending/Referring Phys: Rahul Harris [facility] Home Health Care Case Manager Lisette Richardson [facility] Procedure CPT: Indications: R07.9 CHEST PAIN Cardiac Hx: Technical Quality: Fair Contrast 1: Total Dose (mL): Contrast 2: Total Dose (mL): MEASUREMENTS (Male / Female) Normal Values 2D ECHO LV Diastolic Diameter PLAX 3.7 cm 4.2 - 5.9 / 3.9 - 5.3 cm LV Systolic Diameter PLAX 2.8 cm IVS Diastolic Thickness 1.0 cm 0.6 - 1.0 / 0.6 - 0.9 cm LVPW Diastolic Thickness 1.0 cm 0.6 - 1.0 / 0.6 - 0.9 cm LV Relative Wall Thickness 0.5 LVOT Diameter 2.0 cm M-MODE Aortic Root Diameter MM 2.7 cm LA Systolic Diameter MM 3.4 cm LA Ao Ratio MM 1.3 AV Cusp Separation MM 2.1 cm DOPPLER AV Peak Velocity 107.7 cm/s AV Peak Gradient 4.6 mmHg AV Mean Velocity 88.2 cm/s AV Mean Gradient 3.3 mmHg AV Velocity Time Integral 22.0 cm LVOT Peak Velocity 69.8 cm/s LVOT Peak Gradient 2.0 mmHg LVOT Velocity Time Integral 12.8 cm LVOT Stroke Volume 40.8 cm??? LVOT Stroke Volume Index 19.0 ml/m??? LVOT Cardiac Index 1233.9 cm???/min???m??? AV Area Cont Eq vti 1.9 cm??? AV Area Cont Eq pk 2.1 cm??? Mitral E Point Velocity 56.9 cm/s Mitral A Point Velocity 63.6 cm/s Mitral E to A Ratio 0.9 MV Deceleration Time 249.5 ms LV E' Lateral Velocity 9.7 cm/s Mitral E to LV E' Lateral Ratio 5.9 LV E' Septal Velocity 5.9 cm/s Mitral E to LV E' Septal Ratio 9.7 Right Atrial Pressure 8.0 mmHg FINDINGS Left Ventricle Mildly increased left ventricular wall thickness. Left ventricular cavity size normal. Low normal left ventricular systolic function with no obvious regional wall motion abnormalities. Left ventricular ejection fraction is estimated at 50-55%. Right Ventricle Moderate right ventricular dilatation. Right Atrium Normal right atrial size. Left Atrium Normal left atrial size. Mitral Valve Structurally normal mitral valve. No mitral regurgitation. Aortic Valve Trileaflet aortic valve. No aortic regurgitation. Tricuspid Valve Structurally normal tricuspid valve. No tricuspid regurgitation. Pulmonic Valve Pulmonic valve not well visualized. Pericardium Minimal pericardial effusion (normal variant). Echo free space anterior to the right ventricle likely represents a fat pad. Aorta Normal size aortic root. CONCLUSIONS Normal LV function Previewed by: Dr. Jayesh Cronin MD (Electronically Signed) Final Date: 11 July 2023 12:18
== END | disposition home or self-care (01) ==
LOC: RADECHMAIN 17:40
PROVIDERS: ATTEND Family Medicine
DX: R07.9 Chest pain, unspecified (principal)
CPT/HCPCS: 93306

== ENCOUNTER → 2023-07-19 | Outpatient (CLI) | payer BC ==
--- NOTE | 2023-07-23 18:12 | MM ---
Reason for Exam: Screening (asymptomatic). Last mammogram was performed 1 year(s) and 1 month(s) ago. Patient History: Menarche at age 15. First Full-Term at age 22. Mother had breast cancer, left, age 74. Risk Values: Olive 5 year model risk: 2.4%. NCI Lifetime model risk: 14.8%. Prior Study Comparison: 01/23/2019 Bilateral Screening Mammogram, [facility]. 07/11/2022 Bilateral MG 3D screening mammo w/cad, [facility]. Tissue Density: There are scattered fibroglandular densities. Findings: Analyzed By CAD. Unchanged global asymmetry right upper outer quadrant. There is no suspicious group of microcalcifications or new suspicious mass in either breast. Overall Assessment: Incomplete: need additional imaging evaluation, BI-RAD 0 Management: Diagnostic Breast Ultrasound of the right breast. The patient palpated lump within the medial aspect. [facility] will attempt to contact patient to return for supplemental views and ultrasound if indicated. Electronically signed and approved by: Debby Weinberg M.D. Radiologist
== END | disposition home or self-care (01) ==
LOC: RADMAMWWP 16:41
PROVIDERS: ATTEND Family Medicine
DX: Z12.31 Encounter for screening mammogram for malignant neoplasm of breast (principal); Z80.3 Family history of malignant neoplasm of breast
CPT/HCPCS: 77063; 77067

== ENCOUNTER → 2023-07-25 | Outpatient (CLI) | payer BC ==
--- NOTE | 2023-07-25 09:24 | USB ---
Reason for Exam: Additional evaluation requested from abnormal screening. Patient History: Menarche at age 15. First Full-Term at age 22. Mother had breast cancer, left, age 74. Risk Values: Olive 5 year model risk: 2.4%. NCI Lifetime model risk: 14.8%. Technique: Method: Targeted. Prior Study Comparison: 01/23/2019 Bilateral Screening Mammogram, [facility]. 07/11/2022 Bilateral MG 3D screening mammo w/cad, [facility]. 07/19/2023 Bilateral MG 3D screening mammo w/cad, [facility]. Findings: The area of palpable concern of the right breast, the medial section of the breast of the right breast, the axilla of the right breast and the retroareolar of the right breast were scanned. There is a slightly hyperechoic area in the subcutaneous tissues 3:00 position 2 cm from nipple measuring 1.1 x 0.6 x 0.8 cm likely as a lipoma. 14 cm from the nipple at the 3:00 position no suspicious cystic or solid areas are identified to correlate with the palpable region. Overall Assessment: Benign, BI-RAD 2 Management: Screening Mammogram of both breasts in 1 year. A clinical breast exam by your physician is recommended on an annual basis and results should be correlated with mammographic findings. This exam should not preclude additional follow-up of suspicious palpable abnormalities. Results were given to the patient verbally at the time of exam. Electronically signed and approved by: Scottie El D.O. Radiologis
== END | disposition home or self-care (01) ==
LOC: RADUSWWP 08:52
PROVIDERS: ATTEND Family Medicine
DX: R92.8 Other abnormal and inconclusive findings on diagnostic imaging of breast (principal); Z80.3 Family history of malignant neoplasm of breast

== ENCOUNTER 2023-09-24 21:08 | Observation (INO) | payer BC ==
--- NOTE | 2023-09-24 21:28 | ED ---
Chest Pain HPI - General Chief Complaint: Chest Pain Stated Complaint: Chest Pain, Shortness of breath Time Seen by Provider: 09/24/23 21:18 Source: patient Mode of arrival: ambulatory Limitations: no limitations - History of Present Illness Initial Comments: This patient is a 58-year-old woman who presents for evaluation of chest pain. She states that it started on the left side of the chest near the anterior axillary line. It did radiate to her left shoulder and into her neck. Patient states that initially started around 10:30 in the morning and lasted for an hour before resolving. Recurred a couple of hours ago. Both episodes occurred while at rest. She has not noted worsening or relieving factors. Tonight's symptoms accompanied by nausea. The patient denies history of cardiac disease or previous workup. No smoking history. MD Complaint: chest pain Onset/Timin -: hour(s) Onset: during rest Pain Location: left chest Pain Radiation: LUE, jaw/teeth Severity: mild Quality: aching Consistency: constant Improves With: nothing Worsens With: nothing Anginal Symptoms: nausea Treatments Prior to Arrival: none - Related Data Home Medications Medication Instructions Recorded Confirmed Levothyroxine Sodium [Synthroid] 137 mcg PO DAILY 01/27/17 11/23/17 Ranitidine HCl [Zantac] 150 mg PO BID 01/27/17 11/23/17 Triamterene-Hctz 37.5-25Mg 1 cap PO DAILY 01/27/17 11/23/17 [Dyazide 37.5-25 Capsule] Acetaminophen [Tylenol Arthritis] 650 mg PO Q4HR PRN 08/17/17 11/23/17 Previous Rx's Medication Instructions Recorded Meclizine [Antivert] 25 mg PO TID #20 tab 11/23/17 methylPREDNISolone Dose Pack 4 mg PO DIRECTED #21 package 11/23/17 [Medrol Dose Pack] Amoxicillin/Potassium Clav 1 tab PO Q12HR #20 tab 08/04/19 [Augmentin 875-125 Tablet] Fluconazole [Diflucan] 150 mg PO ONCE #4 tab 08/04/19 Ibuprofen [Motrin] 600 mg PO Q8HR PRN #20 tab 07/22/20 Orphenadrine [Norflex] 100 mg PO Q12H #14 tablet.er 07/22/20 predniSONE 50 mg PO DAILY #5 tab 07/22/20 Azithromycin [Zithromax Z-pack (6 0 mg PO DIRECTED #1 packet 05/11/21 tabs)] predniSONE 50 mg PO DAILY #5 tab 05/11/21 Allergies Allergy/AdvReac Type Severity Reaction Status Date / Time adhesive Allergy Rash/Hives Verified 09/24/23 21:11 latex Allergy Rash/Hives Verified 09/24/23 21:11 Sulfa (Sulfonamide Allergy Anaphylaxis Verified 09/24/23 21:11 Antibiotics) Review of Systems ROS Statement: Those systems with pertinent positive or pertinent negative responses have been documented in the HPI. ROS Other: All systems not noted in ROS Statement are negative. Constitutional: Denies: fever, chills Respiratory: Denies: cough, dyspnea Cardiovascular: Reports: chest pain. Denies: palpitations, orthopnea, edema, syncope Gastrointestinal: Reports: nausea. Denies: abdominal pain, vomiting, diarrhea Genitourinary: Denies: dysuria, hematuria Musculoskeletal: Denies: back pain Skin: Denies: rash Neurological: Denies: headache, weakness EKG Findings - EKG Comments: EKG Findings:: Possible old anterior infarct. - EKG Results: EKG: interpreted by DOLLY, sinus rhythm EKG shows: tachycardia (Rate 114 bpm) - Blocks, [place], Hypertrophy, ST Abn: QRS axis and voltage: low voltage (<0.5 MV total QRS and <1.0 MV in each precordial lead) - FL, Pacemaker, Normal: Myocardial infarction: inferior FL (old age indeterminate) Past Medical History Past Medical History: Hypertension, Thyroid Disorder Additional Past Medical History / Comment(s): Seasonal allergies, R thumb arthritis, History of Any Multi-Drug Resistant Organisms: None Reported Past Surgical History: Appendectomy, Section, Orthopedic Surgery Additional Past Surgical History / Comment(s): R knee surgery in the past, Colonoscopy. Past Anesthesia/Blood Transfusion Reactions: Postoperative Nausea & Vomiting (PONV) Past Psychological History: No Psychological Hx Reported Smoking Status: Never smoker Past Alcohol Use History: Occasional Past Drug Use History: None Reported - Past Family History Mother Family Medical History: Cancer, Deep Vein Thrombosis (DVT) Additional Family Medical History / Comment(s): Colon Father Family Medical History: Cancer Additional Family Medical History / Comment(s): Lung General Exam Limitations: no limitations General appearance: alert, in no apparent distress, anxious Head exam: Present: atraumatic, normocephalic Eye exam: Present: normal appearance. Absent: scleral icterus, conjunctival injection Neck exam: Present: normal inspection, full ROM Respiratory exam: Present: normal lung sounds bilaterally. Absent: respiratory distress, wheezes, rales, rhonchi, stridor Cardiovascular Exam: Present: normal rhythm, tachycardia, normal heart sounds. Absent: systolic murmur, diastolic murmur, rubs, gallop GI/Abdominal exam: Present: soft. Absent: distended, tenderness, guarding, rebound, rigid, mass Extremities exam: Present: normal inspection, normal capillary refill. Absent: pedal edema, calf tenderness Back exam: Present: normal inspection. Absent: CVA tenderness (R), CVA tenderness (L) Neurological exam: Present: alert Psychiatric exam: Present: anxious Skin exam: Present: warm, dry, intact, normal color. Absent: rash Course Vital Signs 09/24/23 09/24/23 21:10 21:54 Temperature 98.4 F Pulse Rate 121 H 93 Respiratory 20 18 Rate Blood Pressure 155/101 130/84 O2 Sat by Pulse 97 96 Oximetry Disposition Clinical Impression: Chest pain Disposition: ADMITTED IP TO THIS HOSP Condition: Good Instructions (If sedation given, give patient instructions): Chest Pain (ED) Is patient prescribed a controlled substance at d/c from ED?: No Referrals: Tyson Biggs DO [Primary Care Provider] - 1-2 days
[2023-09-24 21:42] LABS: Basophils # (A) 0.1 k/uL (0-0.2); Basophils % (A) 1 %; Eosinophils # (A) 0.5 k/uL (0-0.7); Eosinophils % (A) 7 %; HCT 47.1 % (34.0-46.0); HGB 15.8 gm/dL (11.4-16.0); Lymphocytes # (A) 3.2 k/uL (1.0-4.8); Lymphocytes % (A) 47 %; MCH 29.5 pg (25.0-35.0); MCHC 33.7 g/dL (31.0-37.0); MCV 87.6 fL (80.0-100.0); Mean Platelet Volume 7.8; Monocytes # (A) 0.4 k/uL (0-1.0); Monocytes % (A) 5 %; Neutrophils # (A) 2.7 k/uL (1.3-7.7); Neutrophils % (A) 38 %; Platelet Count 274 k/uL (150-450); RBC 5.37 m/uL (3.80-5.40); RDW 12.5 % (11.5-15.5); WBC 6.9 k/uL (3.8-10.6)
[2023-09-24] MEDS: NITROGLYCERIN SL TABS 0.4 MG TAB SUBLINGUAL STA (21:48)
[2023-09-24] MEDS: MORPHINE SULFATE 4 MG/ML SYRINGE IV STA (21:49)
[2023-09-24] MEDS: ASPIRIN 81 MG PO STA (21:51)
[2023-09-24 21:52] LABS: ALT 30 U/L (4-34); AST 28 U/L (14-36); African American GFR (CKD) 75 (>60 ml/min/1.73 sqM); Albumin 4.6 g/dL (3.5-5.0); Alkaline Phosphatase 71 U/L (38-126); Anion Gap 9 mmol/L; Blood Urea Nitrogen 16 mg/dL (7-17); Calcium 9.6 mg/dL (8.4-10.2); Carbon Dioxide 26 mmol/L (22-30); Chloride 104 mmol/L (98-107); Glucose 103 mg/dL (74-99); Magnesium 2.2 mg/dL (1.6-2.3); Non-African American GFR(CKD) 65 (>60 ml/min/1.73 sqM); Potassium 3.4 mmol/L (3.5-5.1); Sodium 139 mmol/L (137-145); Total Bilirubin 0.5 mg/dL (0.2-1.3); Total Protein 7.7 g/dL (6.3-8.2)
[2023-09-24 21:56] LABS: INR 0.9 (<1.2); Partial Thromboplastin Time 23.1 sec (22.0-30.0)
--- NOTE | 2023-09-24 22:30 | XR ---
EXAM: XR Chest, 2 Views CLINICAL HISTORY: ITS.REASON XR Reason: Chest Pain TECHNIQUE: Frontal and lateral views of the chest. COMPARISON: No relevant prior studies available. FINDINGS: Lungs: Unremarkable. No consolidation. Pleural space: Unremarkable. No pneumothorax. Heart: Unremarkable. No cardiomegaly. Mediastinum: Unremarkable. Normal mediastinal contour. Bones/joints: Unremarkable. No acute fracture. IMPRESSION: No pneumonia.
[2023-09-24] MEDS ORDERED: MORPHINE SULFATE 4 MG/ML SYRINGE IV PRN (22:51)
[2023-09-24] MEDS ORDERED: NITROGLYCERIN SL TABS 0.4 MG TAB SUBLINGUAL PRN (22:51)
[2023-09-24] MEDS ORDERED: ACETAMINOPHEN TAB 325 MG TAB PO PRN (22:51)
[2023-09-24] MEDS: SODIUM CHLORIDE 0.9% 1,000 ML IV SCH (23:30)
[2023-09-25] MEDS: ASPIRIN 81 MG PO SCH (08:21)
[2023-09-25] MEDS ORDERED: ASPIRIN 325 MG TAB PO SCH (09:00)
[2023-09-25] MEDS ORDERED: METOPROLOL TARTRATE 25 MG TAB PO SCH (09:00)
--- NOTE | 2023-09-25 11:06 | P.CRDCN ---
History of Present Illness History of present illness: HISTORY OF PRESENT ILLNESS: This is a 58-year-old female with a past medical history significant for hypertension, borderline hyperlipidemia, and hypothyroidism. Patient does not follow with a delphi developer. We have been asked to see the patient in consultation for chest pain. Patient examined at the bedside. Patient states she had an episode of chest pain back in May. She went to [facility] but left AMA as she states she was left for several hours without anyone checking on her and she did not feel safe. She states she never underwent any cardiac testing at that time. Patient presented to [facility] yesterday with a chief complaint of chest pain. She states that she began to have chest pain yesterday in the morning on the left side of her chest that went down her left arm and also into her jaw. She states that she decided to lay back down and go back to sleep. She states when she got up she continued to have pain but also wanted to her shoulder blade which she states is different from the episode she had a few months ago. She reports feeling short of breath and nauseated with the pain. She states the pain is not worse with deep inspir ation or with movement. She states the pain came and went all day yesterday. She reports receiving nitro and aspirin in the emergency room which helped her chest pain. She is a non-smoker. She reports social alcohol use. She denies any drug use. She states that she has never had any previous cardiac testing. She reports a family history of coronary artery disease and states her grandmother had an MA at the age of 35 and in her 50s due to a heart attack. She also reports her mom has had a valve replacement but denies a history of CAD. DIAGNOSTICS: - EKG reveals sinus tachycardia with nonspecific ST-T wave changes. T wave inversions inferiorly. No signs of acute ischemia.. - Chest xray negative for acute process. - Laboratory data: Troponin negative x 3 - Current home cardiac medications include aspirin 81 mg daily, Dyazide 37.5 mg - 25 mg daily, lisinopril 5 mg daily, and Catapres 0.1 mg at night. REVIEW OF SYSTEMS: At the time of my exam: CONSTITUTIONAL: Denies fever or chills. HEENT: Denies blurred vision, vision changes, or eye pain. Denies hemoptysis CARDIOVASCULAR: Denies chest pain. Denies orthopnea. Denies PND. Denies palpitations RESPIRATORY: Denies shortness of breath. GASTROINTESTINAL: Denies abdominal pain. Denies nausea or vomiting. HEMATOLOGIC: Denies bleeding disorders. GENITOURINARY: Denies any blood in urine. SKIN: Denies pruitis. Denies rash. PHYSICAL EXAM: VITAL SIGNS: Reviewed. GENERAL: Well-developed in no acute distress. HEENT: Head is normocephalic. Pupils are equal, round. Sclerae anicteric. Mucous membranes of the mouth are moist. Neck supple. No JVD or thyromegaly LUNGS: Respirations even and unlabored. Lungs essentially clear to auscultation bilaterally. HEART: Regular rate and rhythm. S1 and S2 heard. ABDOMEN: Soft. Nondistended. Nontender. EXTREMITIES: Normal range of motion. No clubbing or cyanosis. Peripheral pulses intact. No lower extremity edema NEUROLOGIC: Awake and alert. Oriented x 3. ASSESSMENT: Chest pain, troponin negative x 3 Hypertension Borderline hyperlipidemia, per patient Hypothyroidism Family history of CAD PLAN: An acute coronary event has been ruled out Obtain 2D echo to assess cardiac structure and function Resume home cardiac medications Decrease aspirin to 81 mg daily Patient to undergo stress echocardiogram today If negative, she may be discharged home from a cardiology perspective Nurse practitioner note has been reviewed by physician. Signing provider agrees with the documented findings, assessment, and plan of care documented by HEALTHCARE ECONOMICS MANAGER as a scribe. Past Medical History Past Medical History: Hypertension, Thyroid Disorder Additional Past Medical History / Comment(s): Seasonal allergies, R thumb arthritis, History of Any Multi-Drug Resistant Organisms: None Reported Past Surgical History: Appendectomy, Section, Orthopedic Surgery Additional Past Surgical History / Comment(s): R knee surgery in the past, Col onoscopy. Past Anesthesia/Blood Transfusion Reactions: Postoperative Nausea & Vomiting (PONV) Past Psychological History: No Psychological Hx Reported Smoking Status: Never smoker Past Alcohol Use History: Occasional Past Drug Use History: None Reported - Past Family History Mother Family Medical History: Cancer, Deep Vein Thrombosis (DVT) Additional Family Medical History / Comment(s): Colon Father Family Medical History: Cancer Additional Family Medical History / Comment(s): Lung Medications and Allergies Home Medications Medication Instructions Recorded Confirmed Type Levothyroxine Sodium [Synthroid] 137 mcg PO DAILY 01/27/17 09/25/23 History Triamterene-Hctz 37.5-25Mg 1 cap PO DAILY 01/27/17 09/25/23 History [Dyazide 37.5-25 Capsule] Aspirin EC [Ecotrin Low Dose] 81 mg PO DAILY 09/25/23 09/25/23 History Ergocalciferol (Vitamin D2) 1,250 mcg PO Q7D 09/25/23 09/25/23 History [Drisdol (50,000 Iu)] Gabapentin [Neurontin] 300 mg PO BID 09/25/23 09/25/23 History Semaglutide [Wegovy] 2.4 mg SQ Q7D 09/25/23 09/25/23 History busPIRone HCl [Buspar] 10 mg PO BID 09/25/23 09/25/23 History cloNIDine HCL [Catapres] 0.1 mg PO HS 09/25/23 09/25/23 History lisinopriL [Zestril] 5 mg PO DAILY 09/25/23 09/25/23 History Allergies Allergy/AdvReac Type Severity Reaction Status Date / Time adhesive Allergy Rash/Hives Verified 09/25/23 07:20 latex Allergy Rash/Hives Verified 09/25/23 07:20 Sulfa (Sulfonamide Allergy Anaphylaxis Verified 09/25/23 07:20 Antibiotics) Physical Exam Vitals: Vital Signs Temp Pulse Pulse Resp BP BP Pulse Ox 09/25/23 02:00 97.5 F L 61 16 93/55 93 L 09/25/23 00:30 66 09/24/23 23:56 97.6 F 66 16 114/72 96 09/24/23 23:21 78 18 115/85 96 09/24/23 21:54 93 18 130/84 96 09/24/23 21:10 98.4 F 121 H 20 155/101 97 Intake and Output 09/24/23 09/25/23 09/25/23 22:59 06:59 14:59 Other: Voiding Method Toilet # Voids 1 Weight 104.326 kg 104.326 kg Results 09/24/23 21:30 09/24/23 21:30 Cardiac Enzymes 09/24/23 09/24/23 09/24/23 Range/Units 21:30 21:30 23:11 AST 28 (14-36) U/L Troponin I <0.012 <0.012 (0.000-0.034) ng/mL 09/25/23 Range/Units 01:30 AST (14-36) U/L Troponin I <0.012 (0.000-0.034) ng/mL Coagulation 09/24/23 Range/Units 21:30 PT 10.0 (10.0-12.5) sec APTT 23.1 (22.0-30.0) sec CBC 09/24/23 Range/Units 21:30 WBC 6.9 (3.8-10.6) k/uL RBC 5.37 (3.80-5.40) m/uL Hgb 15.8 (11.4-16.0) gm/dL Hct 47.1 H (34.0-46.0) % Plt Count 274 (150-450) k/uL Comprehensive Metabolic Panel 09/24/23 Range/Units 21:30 Sodium 139 (137-145) mmol/L Potassium 3.4 L (3.5-5.1) mmol/L Chloride 104 (98-107) mmol/L Carbon Dioxide 26 (22-30) mmol/L BUN 16 (7-17) mg/dL Creatinine 0.98 (0.52-1.04) mg/dL Glucose 103 H (74-99) mg/dL Calcium 9.6 (8.4-10.2) mg/dL AST 28 (14-36) U/L ALT 30 (4-34) U/L Alkaline Phosphatase 71 (38-126) U/L Total Protein 7.7 (6.3-8.2) g/dL Albumin 4.6 (3.5-5.0) g/dL Current Medications Generic Name Dose Route Start Last Admin Trade Name Freq PRN Reason Stop Dose Admin Acetaminophen 650 mg 09/24/23 22:51 Acetaminophen Tab 325 Mg Tab PO Q4HR PRN Pain Aspirin 325 mg 09/25/23 09:00 Aspirin 325 Mg Tab PO DAILY HEBER Sodium Chloride 1,000 mls @ 20 mls/hr 09/24/23 23:00 09/24/23 23:30 Saline 0.9% IV 20 mls/hr .Q24H HEBER Administration Metoprolol Tartrate 25 mg 09/25/23 09:00 Metoprolol Tartrate 25 Mg Tab PO BID HEBER Morphine Sulfate 4 mg 09/24/23 22:51 Morphine Sulfate 4 Mg/Ml Syringe IV Q5M PRN Chest Pain Nitroglycerin 0.4 mg 09/24/23 22:51 Nitroglycerin Sl Tabs 0.4 Mg Tab SUBLINGUAL Q5M PRN Chest Pain Intake and Output 09/24/23 09/25/23 09/25/23 22:59 06:59 14:59 Other: Voiding Method Toilet # Voids 1 Weight 104.326 kg 104.326 kg 09/24/23 21:30 09/24/23 21:30
[2023-09-25 11:08] LABS: Chol/HDL Ratio 5.69 Ratio; LDL Cholesterol,Calculated 134.9 mg/dL (0.0-131.0)
--- NOTE | 2023-09-25 11:51 | CA ---
Stress Echo Report Lavern Hernández Age: 58 Gender: F : 1965 Exam Date: 09/25/2023 10:56 Exam Location: [place] [facility] Ht (in): 68 Wt (lb): 230 Ordering Physician: Anabella Jim Referring Physician: [id number] Outside Installer Apprentice: Liam Garcia Technologist Procedure CPT: Indication: CP ICD-9 Codes: Rhythm: Patient History: Cardiac Medications: SEE CHART Medications in past 24 hours: Contrast: Definity Stress Results Protocol: Lamonte Total dose(mL): 2 Exercise Duration (min:sec): 8:[address] Depression (mm): Angina Score: [place] Score: METS: 10.3 Resting HR: 93 Resting BP: 115 / 75 Peak HR: 164 Peak BP: 200 / 81 Max Predicted HR: 164 100 % Max Predicted HR Target HR: 139 Double Product: 22511 Stress Summary: BP Response: Reason for Termination: MAX EXERTION/TARGET HR Cardiac Symptoms: NO SYMPTOMS ECG Analysis Resting ECG: Stress ECG: Arrhythmia: Echo Analysis Resting Echo: Peak Echo Analysis: MEASUREMENTS (Male/Female) Normal Values CONCLUSIONS Patient underwent exercise stress echo with a Lamonte protocol treadmill stress test. Patient exercised into Stage 3 for a total of 8 minutes and 48 seconds reaching a total of 10.3 METS. Patient's maximum heart rate was 164 which represented 100 % age-predicted maximum heart rate. Stress EKG portion: At baseline patient's EKG showed normal sinus rhythm, normal axis, no significant ST or T wave abnormalities. At peak exercise, EKG showed no significant change from baseline. Stress echo portion: 2-D echocardiogram was performed in the parasternal long, personal short, apical 2 and apical four-chamber views at rest, peak exercise and in recovery. At baseline, echocardiogram showed left ventricular ejection fraction 55% without wall motion abnormalities. With peak exercise, echocardiogram shows improvement in left ventricular ejection fraction, increase contractility, decrease in left ventricular end systolic dimension without wall motion abnormalities consistent with a normal response to exercise. Conclusions: 1. Normal EKG and echo response to exercise without evidence of inducible ischemia. 2. Good exercise capacity. Dr. Сергей Lauren DO (Electronically Signed) Final Date: 25 September 2023 11:50
[2023-09-25] MEDS: busPIRone HCl 10 MG TAB PO SCH (12:24)
[2023-09-25] MEDS: lisinopriL 5 MG TAB PO SCH (12:24)
[2023-09-25] MEDS: LEVOTHYROXINE 137 MCG TAB PO SCH (12:24)
[2023-09-25] MEDS: GABAPENTIN 300 MG CAP PO SCH (12:24)
--- NOTE | 2023-09-25 13:06 | P.HPIM ---
History of Present Illness H&P Date: 09/25/23 History of present illness; patient is a 58-year-old lady with past medical significant for hypertension, hypothyroidism who came to ER because of chest pain. Patient stated that she was all right this morning when started experiencing left-sided chest pain, chest pain was sharp, radiating to the left shoulder, not associated shortness of breath, no aggravating or relieving factors with the chest pain. Chest pain resolved on its own but later on recurred again after a few hours at which time patient had to come to the ER. Patient did complain of nausea at the time of chest pain. There was no complaint of palpitation. No complaint of orthopnea or PND. Patient denied any fever or chills. There was no complaint of lightheaded or dizziness. Initial lab work done in the ER showed WBC 6.9, hemoglobin 15.8, platelet count 274, sodium 139, potassium 3.4, BUN 16, creatinine 0.98, glucose 103, calcium 9.6, magnesium 2.2 Troponin 0.012 EKG done in the ER showed heart rate of114 , no ST segment elevation or depression seen, no T-wave inversions seen. Chest x-ray done in the ER showed no pneumonia Patient admitted to internal medicine service REVIEW OF SYSTEMS: CONSTITUTIONAL: No fever, no malaise, no fatigue. HEENT: No recent visual problems or hearing problems. Denied any sore throat. CARDIOVASCULAR: As mentioned HPI PULMONARY: As mentioned in HPI GASTROINTESTINAL: No diarrhea, no nausea, no vomiting, no abdominal pain. NEUROLOGICAL: No headaches, no weakness, no numbness. HEMATOLOGICAL: Denies any bleeding or petechiae. GENITOURINARY: Denies any burning micturition, frequency, or urgency. MUSCULOSKELETAL/RHEUMATOLOGICAL: Denies any joint pain, swelling, or any muscle pain. ENDOCRINE: Denies any polyuria or polydipsia. The rest of the 14-point review of systems is negative. PHYSICAL EXAMINATION: GENERAL: The patient is alert and oriented x3, not in any acute distress. Well developed, well nourished. HEENT: Pupils are round and equally reacting to light. EOMI. No scleral icterus. No conjunctival pallor. Normocephalic, atraumatic. No pharyngeal erythema. No thyromegaly. CARDIOVASCULAR: S1 and S2 present. No murmurs, rubs, or gallops. PULMONARY: Chest is clear to auscultation, no wheezing or crackles. ABDOMEN: Soft, nontender, nondistended, normoactive bowel sounds. No palpable organomegaly. MUSCULOSKELETAL: No joint swelling or deformity. EXTREMITIES: No cyanosis, clubbing, or pedal edema. NEUROLOGICAL: Gross neurological examination did not reveal any focal deficits. SKIN: No rashes. Assessment and plan Chest pain rule out acute coronary syndrome Hypothyroidism Hypertension Diabetes mellitus Monitor vital signs Monitor CBC Monitor CMP Continue telemetry monitoring Trend troponins. D-dimer was normal. Ordered 2D echo Continue aspirin Resume lisinopril and Synthroid. Consult cardiology Labs and medication were reviewed.. Continue same treatment. Continue with symptomatic treatment. Resume home medication. Monitor labs and vitals. DVT and GI prophylaxis. Further recommendations as per clinical course of the patient Dictation was produced using [employer] dictation software. please excuse any grammatical, word or spelling errors. Past Medical History Past Medical History: Hypertension, Thyroid Disorder Additional Past Medical History / Comment(s): Seasonal allergies, R thumb arthritis, History of Any Multi-Drug Resistant Organisms: None Reported Past Surgical History: Appendectomy, Section, Orthopedic Surgery Additional Past Surgical History / Comment(s): R knee surgery in the past, Colonoscopy. Past Anesthesia/Blood Transfusion Reactions: Postoperative Nausea & Vomiting (PONV) Past Psychological History: No Psychological Hx Reported Smoking Status: Never smoker Past Alcohol Use History: Occasional Past Drug Use History: None Reported - Past Family History Mother Family Medical History: Cancer, Deep Vein Thrombosis (DVT) Additional Family Medical History / Comment(s): Colon Father Family Medical History: Cancer Additional Family Medical History / Comment(s): Lung Medications and Allergies Home Medications Medication Instructions Recorded Confirmed Type Levothyroxine Sodium [Synthroid] 137 mcg PO DAILY 01/27/17 09/25/23 History Triamterene-Hctz 37.5-25Mg 1 cap PO DAILY 01/27/17 09/25/23 History [Dyazide 37.5-25 Capsule] Aspirin EC [Ecotrin Low Dose] 81 mg PO DAILY 09/25/23 09/25/23 History Ergocalciferol (Vitamin D2) 1,250 mcg PO Q7D 09/25/23 09/25/23 History [Drisdol (50,000 Iu)] Gabapentin [Neurontin] 300 mg PO BID 09/25/23 09/25/23 History Semaglutide [Wegovy] 2.4 mg SQ Q7D 09/25/23 09/25/23 History busPIRone HCl [Buspar] 10 mg PO BID 09/25/23 09/25/23 History cloNIDine HCL [Catapres] 0.1 mg PO HS 09/25/23 09/25/23 History lisinopriL [Zestril] 5 mg PO DAILY 09/25/23 09/25/23 History Allergies Allergy/AdvReac Type Severity Reaction Status Date / Time adhesive Allergy Rash/Hives Verified 09/25/23 07:20 latex Allergy Rash/Hives Verified 09/25/23 07:20 Sulfa (Sulfonamide Allergy Anaphylaxis Verified 09/25/23 07:20 Antibiotics) Physical Exam Vitals: Vital Signs Temp Pulse Pulse Resp BP BP Pulse Ox 09/25/23 07:35 97.6 F 51 L 16 98/62 96 09/25/23 02:00 97.5 F L 61 16 93/55 93 L 09/25/23 00:30 66 09/24/23 23:56 97.6 F 66 16 114/72 96 09/24/23 23:21 78 18 115/85 96 09/24/23 21:54 93 18 130/84 96 09/24/23 21:10 98.4 F 121 H 20 155/101 97 Intake and Output 09/24/23 09/25/23 09/25/23 22:59 06:59 14:59 Other: Voiding Method Toilet # Voids 1 Weight 104.326 kg 104.326 kg Results CBC & Chem 7: 09/24/23 21:30 09/24/23 21:30 Labs: Abnormal Lab Results - Last 24 Hours (Table) 09/24/23 09/24/23 Range/Units 21:30 21:30 Hct 47.1 H (34.0-46.0) % Potassium 3.4 L (3.5-5.1) mmol/L Glucose 103 H (74-99) mg/dL Thrombosis Risk Factor Assmnt - Choose All That Apply Any of the Below Risk Factors Present?: Yes Each Factor Represents 1 point: Age 41-60 years, Obesity (BMI >25) Other Risk Factors: No Other congenital or acquired thrombophilia - If yes, enter type in comment: No Thrombosis Risk Factor Assessment Total Risk Factor Score: 2 Thrombosis Risk Factor Assessment Level: Low Risk
[2023-09-25 15:05] VITALS: BP 96/64; PULSE 69; RESP 17; TEMP 97.9
[2023-09-26] MEDS ORDERED: TRIAMTERENE-HCTZ 37.5-25MG 1 EACH CAP PO SCH (09:00)
[2023-09-26] MEDS ORDERED: ASPIRIN 81 MG PO SCH (09:00)
--- NOTE | 2023-09-26 10:51 | CA ---
Transthoracic Echo Report Name: Lavern Hernández Age: 58 Gender: F : 1965 Exam Date: 09/25/2023 09:34 Exam Location: [place] [facility] Ht (in): 68 Wt (lb): 230 Ordering Physician: Anabella Jim Attending/Referring Phys: [id number], Hernán [employer] Lieutenant Mariza Brooks RDCS Procedure CPT: Indications: LV function Cardiac Hx: Technical Quality: Fair Contrast 1: Total Dose (mL): Contrast 2: Total Dose (mL): MEASUREMENTS (Male / Female) Normal Values 2D ECHO LV Diastolic Diameter PLAX 4.2 cm 4.2 - 5.9 / 3.9 - 5.3 cm LV Systolic Diameter PLAX 2.3 cm IVS Diastolic Thickness 1.7 cm 0.6 - 1.0 / 0.6 - 0.9 cm LVPW Diastolic Thickness 1.2 cm 0.6 - 1.0 / 0.6 - 0.9 cm LV Relative Wall Thickness 0.7 FINDINGS Left Ventricle Left ventricular cavity size normal. Mildly increased left ventricular wall thickness. Normal left ventricular systolic function with no obvious regional wall motion abnormalities. Left ventricular ejection fraction is estimated at 55-60 %. Right Ventricle Right Atrium Left Atrium Mitral Valve Aortic Valve Tricuspid Valve Pulmonic Valve Pericardium No pericardial effusion. Aorta CONCLUSIONS Limited 2-D echo Left ventricular ejection fraction 55-60% No mitral regurgitation No pericardial effusion Previewed by: Dr. Сергей Lauren DO (Electronically Signed) Final Date: 26 September 2023 10:50
--- NOTE | 2023-09-27 13:32 | P.DS ---
Providers Date of admission: 09/24/23 22:51 Expected date of discharge: 09/25/23 Attending physician: Amaris Huang Consults: 09/24/23 22:51 Consult Physician Routine Consulting Provider: Jerome Orozco Consult Reason/Comments: chest pain Do you want consulting provider notified?: Yes Primary care physician: [facility] Course: Discharge diagnoses; Chest pain, acute coronary syndrome ruled out Hypothyroidism Hypertension Diabetes mellitus Hospital course; patient is a 58-year-old lady with past medical significant for hypertension, hypothyroidism who came to ER because of chest pain. Patient stated that she was all right this morning when started experiencing left-sided chest pain, chest pain was sharp, radiating to the left shoulder, not associated shortness of breath, no aggravating or relieving factors with the chest pain. Chest pain resolved on its own but later on recurred again after a few hours at which time patient had to come to the ER. Patient did complain of nausea at the time of chest pain. There was no complaint of palpitation. No complaint of orthopnea or PND. Patient denied any fever or chills. There was no complaint of lighthea ded or dizziness. Initial lab work done in the ER showed WBC 6.9, hemoglobin 15.8, platelet count 274, sodium 139, potassium 3.4, BUN 16, creatinine 0.98, glucose 103, calcium 9.6, magnesium 2.2 Troponin 0.012 EKG done in the ER showed heart rate of114 , no ST segment elevation or depression seen, no T-wave inversions seen. Chest x-ray done in the ER showed no pneumonia Patient admitted to internal medicine service 09/25. Patient seen and examined. Patient was evaluated by cardiology, they ordered stress echo which was negative for any ischemia. Cardiology cleared the patient for discharge PHYSICAL EXAMINATION: GENERAL: The patient is alert and oriented x3, not in any acute distress. Well developed, well nourished. HEENT: Pupils are round and equally reacting to light. EOMI. No scleral icterus. No conjunctival pallor. Normocephalic, atraumatic. No pharyngeal erythema. No thyromegaly. CARDIOVASCULAR: S1 and S2 present. No murmurs, rubs, or gallops. PULMONARY: Chest is clear to auscultation, no wheezing or crackles. ABDOMEN: Soft, nontender, nondistended, normoactive bowel sounds. No palpable organomegaly. MUSCULOSKELETAL: No joint swelling or deformity. EXTREMITIES: No cyanosis, clubbing, or pedal edema. NEUROLOGICAL: Gross neurological examination did not reveal any focal deficits. SKIN: No rashes. Dictation was produced using [employer] dictation software. please excuse any grammatical, word or spelling errors. Patient Condition at Discharge: Good Plan - Discharge Summary Discharge Rx Participant: No New Discharge Prescriptions: Continue Triamterene-Hctz 37.5-25Mg [Dyazide 37.5-25 Capsule] 1 cap PO DAILY Levothyroxine Sodium [Synthroid] 137 mcg PO DAILY cloNIDine HCL [Catapres] 0.1 mg PO HS Aspirin EC [Ecotrin Low Dose] 81 mg PO DAILY busPIRone HCl [Buspar] 10 mg PO BID lisinopriL [Zestril] 5 mg PO DAILY Semaglutide [Wegovy] 2.4 mg SQ Q7D Gabapentin [Neurontin] 300 mg PO BID Ergocalciferol (Vitamin D2) [Drisdol (50,000 Iu)] 1,250 mcg PO Q7D Discharge Medication List Levothyroxine Sodium [Synthroid] 137 mcg PO DAILY 01/27/17 [History] Triamterene-Hctz 37.5-25Mg [Dyazide 37.5-25 Capsule] 1 cap PO DAILY 01/27/17 [History] Aspirin EC [Ecotrin Low Dose] 81 mg PO DAILY 09/25/23 [History] Ergocalciferol (Vitamin D2) [Drisdol (50,000 Iu)] 1,250 mcg PO Q7D 09/25/23 [History] Gabapentin [Neurontin] 300 mg PO BID 09/25/23 [History] Semaglutide [Wegovy] 2.4 mg SQ Q7D 09/25/23 [History] busPIRone HCl [Buspar] 10 mg PO BID 09/25/23 [History] cloNIDine HCL [Catapres] 0.1 mg PO HS 09/25/23 [History] lisinopriL [Zestril] 5 mg PO DAILY 09/25/23 [History] Follow up Appointment(s)/Referral(s): Tani Kearns MD [STAFF PHYSICIAN] - 1 Week Tyson Biggs DO [Primary Care Provider] - 1-2 days Patient Instructions/Handouts: Chest Pain (ED) Activity/Diet/Wound Care/Special Instructions: stress test 09/25 - negative Discharge Disposition: HOME SELF-CARE
== END 2023-09-25 16:10 | disposition home or self-care (01) ==
LOC: EC 21:08 → 6NMEDSUR 22:51
PROVIDERS: ADMIT Hospitalist; ATTEND Hospitalist
DX: R07.9 Chest pain, unspecified (principal); I10 Essential (primary) hypertension; E78.5 Hyperlipidemia, unspecified; E03.9 Hypothyroidism, unspecified; E11.9 Type 2 diabetes mellitus without complications; Z79.82 Long term (current) use of aspirin; Z79.890 Hormone replacement therapy; Z79.899 Other long term (current) drug therapy; Z88.2 Allergy status to sulfonamides; Z91.040 Latex allergy status; Z82.49 Family history of ischemic heart disease and other diseases of the circulatory system
CPT/HCPCS: 96374; 99285; 36415; 93005; 93308; 93351; 85379; 80061; 80053; 83735; 84484 ×2; 85025; 85610; 85730; 71046; G0378 ×2; J2270; Q9957